=== PATIENT | male | born 1970 | race Caucasian/White ===

== ENCOUNTER → 2017-06-02 | Outpatient (CLI) | payer OTHER ==
[~2017-06-02] MED LIST: AGM875 PO
[2017-06-02 16:52] LABS: BASO % 0.2 %; BASO ABS # 0.01 K/uL (0-0.2); COMPLETE YES; EOS % 1.1 %; HEMATOCRIT 43.4 % (42-52); IG% 0.5 %; LYMPH % 40.7 %; LYMPH ABS # 2.55 K/uL (1.2-3.4); MEAN CELL VOLUME 90.8 fL (80-100); MEAN CORPUSCULAR HEMOGLOBIN 31.6 pg (25-34); MEAN CORPUSCULAR HGB CONC 34.8 g/dl (32-36); MEAN PLATELET VOLUME 9.8 fL (7.4-10.4); MONO % 3.7 %; NEUT % 53.8 %; PLATELET COUNT 259 K/uL (130-400); RED BLOOD COUNT 4.78 M/uL (4.7-6.1); WHITE BLOOD COUNT 6.26 K/uL (4.8-10.8)
[2017-06-02 17:20] LABS: ALT/SGPT 31 U/L (12-78); BLOOD UREA NITROGEN 14 mg/dl (7-18); BUN/CREATININE RATIO 11.8 (10-20); CALCIUM 9.3 mg/dl (8.5-10.1); CARBON DIOXIDE 28 mmol/L (21-32); CHLORIDE 103 mmol/L (98-107); CREATININE 1.21 mg/dl (0.60-1.40); GLUCOSE 104 mg/dl (70-99); POTASSIUM 3.7 mmol/L (3.5-5.1); SODIUM 139 mmol/L (136-145)
[2017-06-02 17:22] LABS: ALB/GLOB RATIO 1.2 (0.9-2); ALKALINE PHOSPHATASE 72 U/L (45-117); AST/SGOT 19 U/L (15-37)
--- NOTE | 2017-06-02 17:25 | DIAGNOSTIC IMAGING REPORT ---
CHEST 2 VIEWS ROUTINE CLINICAL HISTORY: Cough. Lymphadenopathy. COMPARISON STUDY: No previous studies for comparison. FINDINGS: Lung volumes are normal. Lungs are clear. No pneumothorax or pleural effusion is present. Pulmonary vascularity is normal. Cardiac size is normal. Mediastinal contours are normal. There is slight bilateral hilar fullness. IMPRESSION: 1. No acute cardiopulmonary findings. 2. Slight bilateral hilar fullness. This is likely due to normal vessels although is suboptimally assessed by radiography and mild lymphadenopathy could appear similar. Electronically signed by: Americo Dyer M.D. 06/02/2017 5:23 PM Dictated Date/Time: 06/02/2017 5:21 PM
== END | disposition home or self-care (01) ==
LOC: C.RAD 16:17
PROVIDERS: ATTEND Physician Assistant
DX: R59.1 Generalized enlarged lymph nodes (principal)

== ENCOUNTER → 2017-06-06 | Outpatient (CLI) | payer OTHER ==
--- NOTE | 2017-06-06 09:30 | DIAGNOSTIC IMAGING REPORT ---
ULTRASOUND SOFT TISSUES NECK CLINICAL HISTORY: Lymphadenopathy. COMPARISON STUDY: No priors. FINDINGS: Real-time, grayscale, and color flow sonography of the soft tissues the neck is performed to assess lymphadenopathy. There is bilateral cervical lymphadenopathy. The largest node is present on the left and measures 4.9 x 1.5 x 4.5 cm. The largest node on the right measures 2.3 x 1.5 x 2.3 cm. IMPRESSION: There is nonspecific bilateral cervical lymphadenopathy, potentially on a reactive basis. If this fails to resolve over a reasonable time course then fine-needle aspiration should be considered. Electronically signed by: Noah Louise M.D. 06/06/2017 9:29 AM Dictated Date/Time: 06/06/2017 9:27 AM
--- NOTE | 2017-06-06 11:24 | DIAGNOSTIC IMAGING REPORT ---
GUIDANCE NEEDLE PLACEMENT CLINICAL HISTORY: Cervical lymphadenopathy COMPARISON STUDY: Neck ultrasound of same day. PROCEDURE: The risks, benefits, and alternatives to the procedure were discussed with the patient. Written informed consent was obtained. The patient was placed supine in ultrasound, and one of the enlarged right posterior chain lymph nodes was localized by ultrasound and selected for fine needle aspiration. The right posterior neck was prepped and draped in the usual sterile fashion. The nodule was aspirated under ultrasound guidance with 3 passes utilizing 25-gauge needles. Specimens were reviewed by the pathologist in real-time and deemed adequate for diagnosis. The patient tolerated the procedure well and left the department in satisfactory condition. IMPRESSION: Completed fine-needle aspiration of a right posterior chain cervical lymph node as above. The above report was generated using voice recognition software. It may contain grammatical, syntax or spelling errors. Electronically signed by: Nicho Sheth M.D. 06/06/2017 11:22 AM Dictated Date/Time: 06/06/2017 11:21 AM
[2017-06-09 11:12] LABS: NEO FLOW LYMPH/LEUK STND SEE NEO MISC
== END | disposition home or self-care (01) ==
LOC: C.ULTR 08:38
PROVIDERS: ATTEND Physician Assistant
DX: R59.1 Generalized enlarged lymph nodes (principal)

== ENCOUNTER → 2017-07-07 | Day surgery (SDC) | payer OTHER ==
[2017-07-03 07:41] VITALS: BMI 25.0
[~2017-07-07] VITALS: Ht 175.3 cm; Wt 79.5 kg
[~2017-07-07] MED LIST changes: -AGM875 PO; +ATROPINE SULFATE 0.1 MG/ML 5ML SYR IV PRN; +CEFAZOLIN SOD 2000MG/10 ML IV PUSH IV ONE; +FENTANYL CITRATE INJ 50 MCG/1 ML 2 ML VIAL IV PRN; +FENTANYL CITRATE INJ 50 MCG/1 ML 2 ML VIAL ONE; +HEPARIN SOD (PORCINE) 1000 UNIT/ML 10 ML VIAL ONE; +KETOROLAC TROMETHAMINE 30 MG/ML VIAL IV. PRN; +LABETALOL HCL IV 5 MG/ML 20ML IV PRN; +LACTATED RINGER'S 1000ML 1,000 ML IV SCH; +MIDAZOLAM HCL 1 MG/ML 2ML VIAL ONE; +ONDANSETRON INJ 2 MG/ML 2 ML VIAL IV PRN; +OXYC-57 PO; +OXYCODONE/ACETAMINOPHEN 5-325 TAB PO PRN; +SODIUM CHLORIDE 0.9% 1000ML 1,000 ML IV SCH
[2017-07-07 07:49] VITALS: BP 115/78; PULSE 70; TEMP 36.9; O2SAT 98; Ht 175.3 cm; Wt 79.5 kg
--- NOTE | 2017-07-07 08:25 | History & Physical Bridge Note ---
H&P Re-Evaluation Bridge Note: I have examined the patient, reviewed the History & Physical and in the interval since the performance of the History & Physical I have noted the following changes of clinical significance: No changes noted
--- NOTE | 2017-07-07 08:38 | History & Physical Bridge Note ---
H&P Re-Evaluation Bridge Note: I have examined the patient, reviewed the History & Physical and in the interval since the performance of the History & Physical I have noted the following changes of clinical significance: Plan for power port placement. Risks reviewed to include but not limited to bleeding, infection, pneumothorax, need for future or more extensive surgery, damage to surrounding structures, injury to major vessel, blood clots, port malfunction, and risks of anesthesia. No other changes noted
--- NOTE | 2017-07-07 09:23 | [facility] Post Operative Brief Note ---
Immediate Operative Summary Operative Date Jul 07, 2017. Pre-Operative Diagnosis Staging for non-Hodgkin's lymphoma Post-Operative Diagnosis Bone marrow done for staging for non-Hodgkin's lymphoma Procedure(s) Performed Bone marrow biopsy and aspirate Surgeon Eduin Monteiro DO Newcomer Hostess Surgeon(s) None Estimated Blood Loss 2-3 cc Findings After obtaining consent the patient did receive a bone marrow biopsy and aspirate from the patient's left posterior iliac crest. 1% lidocaine was used as local anesthetic. Aspirate material was obtained Via [place] needle and a Jamshidi was used for core biopsy. Adequate specimen I believe was obtained. Patient tolerated procedure well. Specimens After obtaining consent the patient did undergo conscious sedation. He was turned on his right side and 1% lidocaine was used to locally anesthetize an area over the left posterior iliac crest. The bone marrow biopsy and aspiration were done successfully. Aspiration was done Via [place] needle and the Jamshidi was used for the core biopsy. Specimen was sent for histology as well as flow cytometric to genetics. The patient tolerated the procedure well. He is now being prepared for port placement. Drains None Anesthesia Conscious sedation Complication(s) None Disposition Recovery Room / PACU
[2017-07-07] MEDS: BUPIVACAINE 0.5 % 5 MG/1 ML MPF 30ML VIAL ONE ×2 (09:43→09:50)
--- NOTE | 2017-07-07 09:56 | [facility] Post Operative Brief Note ---
Immediate Operative Summary Operative Date Jul 07, 2017. Pre-Operative Diagnosis Lymphoma Post-Operative Diagnosis Same as preoperative Procedure(s) Performed Insertion of Mediport with Fluoroscopy, Left Subclavian Surgeon Dr. Horton (Mediport Insert) Guest Specialist Surgeon(s) Tiffani Clement PA-C (Mediport Insert) Estimated Blood Loss 3ml Findings Left subclavian vein PowerPort placed, draws and flushes easily. Specimens None Drains None Anesthesia MAC, local Complication(s) None Disposition Recovery Room / PACU
--- NOTE | 2017-07-07 10:02 | [facility] Operative Report ---
Operative Report Operative Date Jul 07, 2017. Pre-Operative Diagnosis Lymphoma Post-Operative Diagnosis lymphoma Procedure(s) Performed Left subclavian PowerPort placement Surgeon Dr. Horton (Mediport Insert) Electric Wheelchair Repairer Surgeon(s) Tiffani Clement PA-C (Mediport Insert) Estimated Blood Loss 3ml Findings Left subclavian vein PowerPort placed, draws and flushes easily. Specimens None Drains None Anesthesia MAC, local Complication(s) None Disposition Recovery Room / PACU Indications 47-year-old male with lymphoma, plan for power port placement. The risks of the procedure were discussed, all questions were answered, and the patient agreed to proceed with surgery as planned. Description of Procedure The patient was properly identified, consented, and taken to the operating room where she was placed in the supine position with both arms tucked and a shoulder roll placed vertically. Monitored anesthesia care was induced. SCDs and a safety belt were placed. Preoperative antibiotics were administered. Bone marrow biopsy was performed by medical oncology, please see their dictation for further information regarding this procedure. The patient's chest and neck was prepped and draped in the standard sterile fashion. Surgical timeout was performed and all parties were in agreement that this was the correct patient and procedure to be performed and we continued as planned. The patient was placed in Trendelenburg position. Local anesthetic was injected along the skin incision. The left subclavian vein was accessed on the second attempt using the access needle. The wire was placed, the needle was removed. Fluoroscopy confirmed placement into the subclavian vein extending into the superior vena cava. Transverse skin incision was made and a pocket was created for the port. The dilator and peel-away sheath were inserted over the wire. The catheter was then inserted through the peel-away sheath and fluoroscopy confirmed placement into the superior vena cava. The catheter was cut to length and attached to the port. The port was secured into place with 3- 0 Prolene sutures. Final fluoroscopy revealed good placement of the port. The wound was irrigated and hemostasis was confirmed. The skin was closed with interrupted 3-0 Vicryl deep dermal sutures, followed by 4-0 Monocryl running subcuticular suture. Dermabond was placed over the wound. The port was accessed and yola blood easily and flushed easily. It was flushed with heparinized saline. The patient taken to the PACU where she recovered without apparent incident. All sponge, instrument and needle counts were correct at the conclusion of the procedure. The patient tolerated the procedure well. I attest to the content of the Intraoperative Record and any orders documented therein. Any exceptions are noted below.
--- NOTE | 2017-07-07 10:04 | Discharge Instructions ---
Discharge Instructions Date of Service Jul 07, 2017. Admission Reason for Admission: Non Hodgkins Lymphoma Discharge Discharge Diagnosis / Problem: Non-Hodgkins Lymphoma Discharge Goals Goal(s): Improve function, Learn about illness Activity Recommendations Activity Limitations: as noted below Lifting Limitations: no more than 10 pounds Exercise/Sports Limitations: until after follow-up appointment May Resume Sexual Activity: after follow-up appointment Shower/Bathe: tomorrow Driving or Machine Use: resume 1 day after discharge . Instructions / Follow-Up Instructions / Follow-Up You have dissolvable sutures that do not need to be removed with Dermabond overtop the incision. You can shower tomorrow AM. The Dermabond will stay on the incision for a couple of weeks and then will start to peel off. Please follow-up with Dr. Horton in the office in 1-2 weeks. Please call the office to make a follow-up appointment at [phone]. Please call the office with any questions or concerns. Current Hospital Diet Patient's current hospital diet: Discharge Diet Recommended Diet: Regular Diet Procedures Procedures Performed: Insertion of Mediport with Fluoroscopy, Left Subclavian Pending Studies Studies pending at discharge: no Medical Emergencies . Who to Call and When: Medical Emergencies: If at any time you feel your situation is an emergency, please call 911 immediately. . Non-Emergent Contact Non-Emergency issues call your: Primary Care Provider, Surgeon Call Non-Emergent contact if: temperature is above 101.5, your pain is not controlled, wound has increased drainage, wound has increased redness . "Provider Documentation" section prepared by Tiffani Clement. . VTE Core Measure Inpt VTE Proph given/why not?: SCD's [place] Drug Monitoring Program Search Results: patient reviewed within database, no issues identified
--- NOTE | 2017-07-07 10:40 | Anesthesiology Progress Note ---
Anesthesia Post Op Note Date & Time Jul 07, 2017 at 10:40 Vital Signs Pain Intensity: 0 Vital Signs Past 12 Hours Date Time Temp Pulse Resp B/P (MAP) Pulse Ox O2 Delivery O2 Flow Rate FiO2 07/07/17 10:30 63 18 102/79 98 Room Air 07/07/17 10:15 36.7 64 23 102/77 98 Room Air 07/07/17 10:05 63 19 105/73 96 Room Air 07/07/17 09:58 36.3 69 16 113/75 97 Room Air 07/07/17 07:49 36.9 70 18 115/78 (90) 98 Room Air Notes Mental Status: alert / awake / arousable, participated in evaluation Pt Amnestic to Procedure: Yes Nausea / Vomiting: adequately controlled Pain: adequately controlled Airway Patency, RR, SpO2: stable & adequate BP & HR: stable & adequate Hydration State: stable & adequate Anesthetic Complications: no major complications apparent
--- NOTE | 2017-07-07 10:55 | DIAGNOSTIC IMAGING REPORT ---
CHEST ONE VIEW PORTABLE HISTORY: s/p port placement COMPARISON: Chest 06/02/2017. FINDINGS: No pleural effusions. No pneumothorax. Interval placement of left subclavian Port-A-Cath which terminates in the distal SVC. The lungs are clear. The heart is top normal in size. Mediastinal density at the peritracheal and subcarinal locations is consistent with the patient's lymphadenopathy. IMPRESSION: Left subclavian Port-A-Cath which terminates in the distal SVC. No pneumothorax. Mediastinal lymphadenopathy persists. Electronically signed by: Javier Rodriguez M.D. 07/07/2017 10:54 AM Dictated Date/Time: 07/07/2017 10:52 AM
[2017-07-07 11:05] VITALS: BP 110/71; PULSE 71; TEMP 36.7; O2SAT 96
[2017-07-07 11:35] VITALS: BP 104/67; PULSE 65; TEMP 36.7; O2SAT 99
== END | disposition home or self-care (01) ==
LOC: C.ACU 07:11
PROVIDERS: ATTEND Internal Medicine Hematology & Oncology
DX: C81.74 Other Hodgkin lymphoma, lymph nodes of axilla and upper limb (principal); Z80.3 Family history of malignant neoplasm of breast

== ENCOUNTER → 2018-01-07 | Outpatient (CLI) | payer OTHER ==
--- NOTE | 2018-01-07 12:04 | DIAGNOSTIC IMAGING REPORT ---
PET/CT SKULL-THIGH CLINICAL HISTORY: 47 years-old Male with LYMPHOMA. Subsequent treatment strategy. Patient's reported last chemotherapy treatment was 12/09/2017. COMPARISON: PET/CT 06/18/2017. TECHNIQUE: The patient was injected with 12.9 mCi of F-18 fluorodeoxyglucose (FDG) and an emission scan was performed from the skull vertex to the toes. Noncontrast CT was performed for attenuation correction and anatomic localization. The blood glucose level was 100 mg/dl. FINDINGS: HEAD AND NECK: Symmetric uptake within the region of the palatine tonsils, cricoid cartilage and sublingual glands is likely physiologic. There is markedly improved appearance of the neck adenopathy with decreased size and FDG uptake about the lymph nodes. For example, index lymph node about the right parotid gland now measures 9 x 6 mm, previously 1.9 x 1.6 cm. Lymph node posterior to the right SCM, image 36 series 2 now measures 7 x 5 mm, previously 3.1 x 2.0 cm. No new pathologic adenopathy or focal hypermetabolic activity identified. CHEST: Markedly improved appearance of the mediastinal and hilar adenopathy with decreased size and FDG uptake of the lymph nodes. For example, index subcarinal lymph node now measures 1.1 x 0.8 cm, previously 3.9 x 2.4 cm. No new adenopathy or hypermetabolic activity about the chest. ABDOMEN AND PELVIS: Markedly improved appearance of the abdominal and pelvic adenopathy with decreased size and FDG uptake of the lymph nodes. For example, index periaortic adenopathy at the level of the kidneys now measures 2.8 x 1.7 cm, image 151 series 2, previously measuring 10.7 x 6.4 cm. Lymph nodes anterior to the SVC have also decreased in size. Index pelvic sidewall lymph node on the right now measures 1.6 x 0.7 cm on image 209 series 2 and previously measured 5.5 x 3.5 cm. Index right inguinal lymph node now measures 1.0 x 0.7 cm, previously 3.0 x 2.3 cm. No new adenopathy or hypermetabolic activity. Spleen is normal in size. MUSCULOSKELETAL SYSTEM AND EXTREMITIES: There is a physiologic distribution of activity within the bone marrow, with no hypermetabolic foci. ADDITIONAL CT FINDINGS: Left subclavian Rcacaq-y-Nbhk catheter terminates within the distal SVC. The heart is mildly enlarged. Coronary arterial calcifications are noted. Decreased size of the richadr-fissural lymph nodes adjacent to the left upper lobe, now measuring 4 mm, previously measuring up to 6 mm. No suspicious pulmonary nodules. Mild dependent subsegmental bibasilar atelectasis. Nonobstructing punctate calculus of the interpolar left kidney. Small fat-filled left inguinal hernia. Mild wall thickening with partial distention of the bladder. Phleboliths of the pelvis. Moderate stool volume suggests constipation. Normal appendix. No ascites or mesenteric inflammatory changes. Soft tissues are unremarkable. Bones appear intact. No suspicious lytic or blastic bony lesions. Polypoid mucosal thickening of the bilateral maxillary sinuses. Hypoplasia of the right frontal sinus. Severe intervertebral disc space narrowing at L5-S1. IMPRESSION: 1. Markedly improved exam with decreased size and metabolic activity of the lymph nodes about the neck, chest, abdomen and pelvis as detailed above compatible with positive response to therapy. 2. Normal size of the spleen. 3. Additional findings as above. The above report was generated using voice recognition software. It may contain grammatical, syntax or spelling errors. Dictated: 01/07/2018 11:02 AM Transcribed: 01/07/2018 12:03 PM [email or web address] Electronically signed by: Nicho Sheth M.D. 01/07/2018 1:17 PM Dictated Date/Time: 01/07/2018 11:02 AM
== END | disposition home or self-care (01) ==
LOC: C.PET 07:48
PROVIDERS: ATTEND Internal Medicine Hematology & Oncology
DX: C91.10 Chronic lymphocytic leukemia of B-cell type not having achieved remission (principal)

== ENCOUNTER 2024-10-13 00:03 | Inpatient (IN) ==
[2024-10-13 01:00] LABS: Albumin Globulin Ratio 1.7 (0.9-2); Albumin Level 4.3 gm/dl (3.4-5.0); BUN Creatinine Ratio 16.2 (10-20); Bilirubin,Total 0.4 mg/dl (0.2-1.0); Calcium 8.9 mg/dl (8.6-10.3); Creatinine Clr Calc Pharmacy 97.7 ml/min; Globulin 2.6 gm/dl (2.5-4.0); Potassium 3.6 mmol/L (3.5-5.1); Total Protein 6.9 gm/dl (6.0-8.3)
[2024-10-13 01:10] LABS: INR 0.9 (0.9-1.1); Partial Thromboplastin Time 26 Seconds (21-31); Prothrombin Time 10.2 Seconds (9.0-12.0)
[2024-10-13 01:26] LABS: Troponin I High Sensitivity 108.3 pg/ml (0-20)
--- NOTE | 2024-10-13 01:30 | XRay Report ---
EXAM: XR chest 1V not portable CLINICAL HISTORY: Chest pain, nonspecific TECHNIQUE: An X-ray image of the chest is obtained in AP projection. COMPARISON: Prior CT dated 07/20/2024 was reviewed. This examination has been compared with prior x-ray dated 10/30/2023 FINDINGS: Pulmonary Parenchyma: Patient is rotated Atelectatic band seen in right lung perihilar region and lower zone No evidence of consolidation, collapse, or focal opacities. No pulmonary nodules are identified. No evidence of pleural effusion or pleural thickening. Smooth diaphragmatic, noted on right side Heart and Mediastinum: Heart size and shape are normal. No mediastinal widening or masses. No hilar or mediastinal lymphadenopathy. Both say appear prominent Bony Thorax: Bony thorax appears intact without fractures or deformities. Soft Tissues: Soft tissues overlying the chest wall are unremarkable. IMPRESSION: 1. Atelectatic band seen in right lung perihilar region and lower zone, stable. 2. No evidence of active pulmonary infection. 3. No pleural effusion identified bilaterally. 4. Redemonstration of bilateral hilar vascular congestion, with possibility of right-sided lymph nodes. No enlarged right hilar lymph node seen on CT prior examination. 5. No other significant interval changes in relation to the prior CT and X-ray examination Electronically signed by Amadou Stevens 10-13-2024 01:30 AM
[2024-10-13] MEDS: ASPIRIN 81 MG CHEW PO STA (01:39)
[2024-10-13] MEDS: NITROGLYCERIN 2% OINTMENT 30GM TUBE EXT ONE (01:39)
[2024-10-13] MEDS: MoRPHine SULFATE 4 MG/ML 1 ML CARP\\VIAL IV PRN (01:42)
[2024-10-13] MEDS: OPTIRAY 320 125ml IV ONE (01:57)
[2024-10-13] MEDS: NITROGLYCERIN SL 0.4 MG/TAB TAB ONE (01:58)
[2024-10-13 02:01] LABS: Basophils # (auto) 0.02 K/uL (0.00-0.20); Basophils % (auto) 0.4 %; Eosinophils # (auto) 0.21 K/uL (0.00-0.50); Eosinophils % (auto) 3.8 %; Hematocrit (blood only) 44.2 % (42.0-52.0); Hemoglobin 15.2 g/dl (14.0-18.0); Immature Granulocytes # (auto) 0.02 K/uL (0.01-0.20); Immature Granulocytes % (auto) 0.4 %; Lymphocytes # (auto) 1.53 K/uL (1.20-3.40); Lymphocytes % (auto) 27.6 %; Mean Corpuscular Hemoglobin 31.2 pg (25.0-34.0); Mean Corpuscular Hgb Conc 34.4 g/dL (32.0-36.0); Mean Corpuscular Volume 90.8 fL (80.0-100.0); Mean Platelet Volume 9.9 fL (9.4-12.4); Monocytes # (auto) 0.46 K/uL (0.11-0.59); Monocytes % (auto) 8.3 %; Neutrophils % (auto) 59.5 %; Platelet Count 241 K/uL (130-400); RDW Standard Deviation 39.6 fL (36.4-46.3); Red Blood Count 4.87 M/uL (4.70-6.10); White Blood Count 5.54 K/ul (4.8-10.8)
--- NOTE | 2024-10-13 03:44 | CT Scan Report ---
EXAM: CT angio chest dissec wo/w con CLINICAL HISTORY: chest pain TECHNIQUE: Contiguous 3.[address] angiographic images of the chest were acquired with the administration of intravenous contrast. Coronal and sagittal reconstructions were obtained.119 ml opti 320 was administered for post-contrast images. One of these 3D techniques was utilized: Maximum Intensity Pixel (MIP), 3D Reconstructed Images, Volume Rendered Images, Surface Shaded Rendering. One of the following dose reduction techniques were utilized for this exam: Automated exposure control, adjustment of the mA and/or kV according to patient size, and use of iterative reconstruction. COMPARISON: None. FINDINGS: Aorta: The thoracic aorta is normal in caliber. No evidence of aneurysm, dissection, or significant atherosclerotic changes. Aortic arch and descending thoracic aorta are unremarkable. Pulmonary Arteries: Pulmonary arteries are normal in size and opacification. No evidence of pulmonary embolism. No stenosis or filling defects. Superior Vena Cava (SVC) and Inferior Vena Cava (IVC): Normal opacification and caliber. No evidence of thrombus or obstruction. Mediastinum: No mediastinal mass or lymphadenopathy. Normal appearance of the thymus. Heart: Normal size and morphology of the heart. No pericardial effusion. Lungs: Lungs are clear with no evidence of consolidation, nodules, or masses. Atelectatic band noted at the right middle lobe. No pleural effusion or thickening. Bones: No fractures or lytic/sclerotic lesions of the visualized bony structures. Normal alignment and bone density. Soft Tissues: Normal appearance of the visualized soft tissues. No abnormal masses or fluid collections. Pathologically enlarged left axillary lymph nodes were noted. The scan part of the abdomen fatty liver. IMPRESSION: 1. Normal CT angiography of the chest, no evidence of dissection. 2. No evidence of significant vascular abnormalities. 3. Left axillary lymphadenopathy. Need clinical correlation and further work up. 4. Fatty liver. Electronically signed by Amadou Stevens 10-13-2024 03:44 AM
--- NOTE | 2024-10-13 04:54 | History & Physical Report ---
Date of Service October 13, 2024 Assessment & Plan (1) NSTEMI (non-ST elevated myocardial infarction): (2) Dyslipidemia: Plan The patient is a 54-year-old male with a past medical history including Diaz's neuroma of right foot, dyslipidemia, non-Hodgkin's lymphoma in remission for 7 years.The patient presents to the emergency department with report of substernal chest pain that began around 7:00 this evening after eating supper. He reports that the pain was a new finding for him, and became significantly more intense when he tried to lay back as he was getting ready to go to bed at around 9-10 o'clock this evening. Due to the persistence and worsening of symptoms, patient presented to the emergency department for assessment. In the emergency department, CT angiography chest PE protocol was negative for PE. Initial troponin was 108.3, with follow-up 189.8. Initial EKG showed nonspecific changes across the anterior chest leads. Follow-up EKG showed some more prominent changes. In combination with increasing troponin, and the patient's symptomatology along with changing EKG, patient was placed on heparin drip, he had already been given aspirin 324 mg from the ED, and was on Nitropaste 1 inch anterior chest wall which will be continued. Patient also will have be started on atorvastatin 40 mg now, will follow serial troponins, order complete echocardiogram, check hemoglobin A1c, and cardiology consult has been made. #NSTEMI- The patient will be admitted to telemetry for serial cardiac enzymes, serial EKG's, cardiac rhythm monitoring and a 2-D echocardiogram with Dopplers. Initial troponin 108.3, with follow-up 189.8 Initial EKG with normal sinus rhythm with nonspecific changes along the anterior chest leads, with more progressive changes on second EKG. Begin heparin bolus/drip via protocol Continue Nitropaste 1 inch to anterior chest wall every 6 hours Has already been given aspirin 325 mg daily, and will continue aspirin 81 mg every morning Start Lipitor 40 mg every morning, with first dose now Check a fasting lipid panel and hemoglobin A1c Give Klor-Con 40 mill equivalents p.o. now for potassium of 3.6 Follow serial CBC with differential, chemistry profile, magnesium, PT/PTT/INR and serial troponins Placed on NSS plus KCl 20 mill equivalents at 100 mL/h x [address] Sutherland is aware Non-Hodgkin's lymphoma- Follows with Dr. Lindo, and has been for the most part in remission for 7 years, mother reports there has been some left axillary activity recently History of Present Illness Chief Complaint: The patient presents to the emergency department with report of substernal chest pain that began around 7:00 this evening after eating supper. He reports that the pain was a new finding for him, and became significantly more intense when he tried to lay back as he was getting ready to go to bed at around 9-10 o'clock this evening. Due to the persistence and worsening of symptoms, patient presented to the emergency department for assessment. Primary Care Provider: Rosa Toure MD The patient is a 54-year-old male with a past medical history including Diaz's neuroma of right foot, dyslipidemia, non-Hodgkin's lymphoma in remission for 7 years.The patient presents to the emergency department with report of substernal chest pain that began around 7:00 this evening after eating supper. He reports that the pain was a new finding for him, and became significantly more intense when he tried to lay back as he was getting ready to go to bed at around 9-10 o'clock this evening. Due to the persistence and worsening of symptoms, patient presented to the emergency department for assessment. In the emergency department, CT angiography chest PE protocol was negative for PE. Initial troponin was 108.3, with follow-up 189.8. Initial EKG showed nonspecific changes across the anterior chest leads. Follow-up EKG showed some more prominent changes. In combination with increasing troponin, and the patient's symptomatology along with changing EKG, patient was placed on heparin drip, he had already been given aspirin 324 mg from the ED, and was on Nitropaste 1 inch anterior chest wall which will be continued. Patient also will have be started on atorvastatin 40 mg now, will follow serial troponins, order complete echocardiogram, check hemoglobin A1c, and cardiology consult has been made. Allergies Allergy/AdvReac Type Severity Reaction Status Date / Time No Known Allergies Allergy Mild Verified 05/20/20 10:46 Home Medications Medication Instructions Recorded Confirmed Type sulfamethoxazole 800 1 tab PO BID #10 tabs 07/12/20 07/12/20 Rx mg-trimethoprim 160 mg tablet (Bactrim DS) fluocinonide 0.05 % topical cream 1 applic topical BID #60 grams 07/17/20 Rx amoxicillin 875 mg-potassium 1 tab PO BID #14 tabs 03/20/21 03/20/21 Rx clavulanate 125 mg tablet (Augmentin) benzonatate 100 mg capsule 100 mg PO TID PRN cough #30 caps 03/20/21 03/20/21 Rx (Tessalon Perles) methylprednisolone 4 mg tablets in See Rx Instructions .Route 04/06/21 Rx a dose pack (Medrol (Tobi)) .COMPLEX #21 ea Past Med/Surg History Problem List (Updated 10/13/24 @ 05:28 by Jamar Will MD) NSTEMI (non-ST elevated myocardial infarction) Diaz's neuroma of right foot Metatarsalgia of right foot Dyslipidemia (Acute) Medical History Dyslipidemia Herpes zoster Metatarsalgia of right foot Nephrolithiasis Non-Hodgkin lymphoma Surgical History H/O lymph node biopsy S/P tooth extraction Family History Mother FHx: breast cancer Family history of diabetes mellitus Social History Smoking Status: Never smoker Second Hand Exposure: No; Do You Dip or Chew Tobacco: No; Hx Alcohol Use: Yes Hx Substance Use: No Preferred Language: Ethiopian Communication Ability: Effective Carpet Layer Required: No Beliefs That Will Affect Care: None marital status: Legally Current Living Situation: Alone Feels Safe at Home: Yes Assistive Devices: Contacts Review of Systems 2 Review of Systems: The patient presently denies chest pain, palpitations, shortness of breath, dyspnea on exertion, cough, lower extremity swelling, sore throat, fevers, chills, sweats, weight change, fatigue, nausea, vomiting, diarrhea , constipation, abdominal pain, pelvic pain, blood in urine or stool, dysuria, urinary frequency or urgency, lightheadedness, dizziness, headache, memory loss, loss of consciousness, rash, abnormal bruising or bleeding, imbalance, focal or generalized weakness, numbness or tingling in arms or legs, generalized arthralgias or myalgias, back or neck pain, or night sweats. The review of systems is otherwise negative other than for that already noted above, and at least 10 systems have been reviewed. Physical Exam Physical Exam: The patient is awake, alert and oriented 3, well developed and well nourished, normocephalic and atraumatic, lying in bed and in no acute distress. HEENT--PERRL, EOMI, mucous membranes and oropharynx normal. Neck--supple. No JVD. No bruits. Thyroid normal, trachea midline, no adenopathy . Heart--normal S1 and S2. No murmurs, rubs or gallops. Lungs--clear bilaterally, no respiratory distress, no accessory muscle use. Abdomen--normal bowel sounds and soft. Nontender. Nondistended, no hernias or masses, no organomegaly. Extremities--no cyanosis or clubbing. No edema. There are good distal pulses b/l. Dermatologic--normal skin turgor, normal color, no abnormal lymph nodes, no rash. Neurologic--cranial nerves II through XII grossly intact. Rheumatologic--normal range of motion. Psychiatric--normal affect. Results & Data Results & Data Vital Signs (Past 12 Hours) Vital Signs Temp Pulse Pulse Resp BP BP Pulse Ox 10/13/24 04:46 71 10/13/24 04:15 66 20 113/85 93 10/13/24 03:45 65 21 112/84 91 10/13/24 03:30 64 20 126/88 92 10/13/24 03:15 67 16 117/88 94 10/13/24 02:00 75 17 165/117 H 96 10/13/24 00:49 67 10/13/24 00:44 68 23 168/104 H 97 10/13/24 00:44 97 10/13/24 00:06 36.9 C 69 19 173/98 H 97 O2 Del Method 10/13/24 04:46 10/13/24 04:15 10/13/24 03:45 10/13/24 03:30 10/13/24 03:15 10/13/24 02:00 Room Air 10/13/24 00:49 10/13/24 00:44 Room Air 10/13/24 00:44 Room Air 10/13/24 00:06 Room Air Laboratory Results Laboratory Results WBC 5.54 K/ul (4.8-10.8) 10/13/24 00:22 RBC 4.87 M/uL (4.70-6.10) 10/13/24 00:22 Hgb 15.2 g/dl (14.0-18.0) 10/13/24 00:22 Hct 44.2 % (42.0-52.0) 10/13/24 00:22 MCV 90.8 fL (80.0-100.0) 10/13/24 00:22 MCH 31.2 pg (25.0-34.0) 10/13/24 00: MCHC 34.4 g/dL (32.0-36.0) 10/13/24 00: RDW Std Deviation 39.6 fL (36.4-46.3) 10/13/24 00: RDW Coeff of Олег 12.0 % (11.5-14.5) 10/13/24 00: Plt Count 241 K/uL (130-400) 10/13/24 00:22 MPV 9.9 fL (9.4-12.4) 10/13/24 00:22 Immature Gran % (Auto) 0.4 % 10/13/24 00:22 Neut % (Auto) 59.5 % 10/13/24 00:22 Lymph % (Auto) 27.6 % 10/13/24 00:22 Bulloch % (Auto) 8.3 % 10/13/24 00:22 Eos % (Auto) 3.8 % 10/13/24 00:22 Baso % (Auto) 0.4 % 10/13/24 00:22 Neut # (Auto) 3.30 K/uL (1.40-6.50) 10/13/24 00:22 Lymph # (Auto) 1.53 K/uL (1.20-3.40) 10/13/24 00:22 Bulloch # (Auto) 0.46 K/uL (0.11-0.59) 10/13/24 00:22 Eos # (Auto) 0.21 K/uL (0.00-0.50) 10/13/24 00:22 Baso # (Auto) 0.02 K/uL (0.00-0.20) 10/13/24 00:22 Immature Gran # (Auto) 0.02 K/uL (0.01-0.20) 10/13/24 00:22 PT 10.2 Seconds (9.0-12.0) 10/13/24 00:22 INR 0.9 (0.9-1.1) 10/13/24 00:22 APTT 26 Seconds (21-31) 10/13/24 00:22 PTT Ratio 1.0 10/13/24 00:22 Sodium 139 mmol/L (136-145) 10/13/24 00:22 Potassium 3.6 mmol/L (3.5-5.1) 10/13/24 00:22 Chloride 107 mmol/L (98-107) 10/13/24 00:22 Carbon Dioxide 26 mmol/L (21-32) 10/13/24 00:22 Anion Gap 6 (3-11) 10/13/24 00:22 BUN 16 mg/dl (6-23) 10/13/24 00:22 Creatinine 0.99 mg/dl (0.6-1.4) 10/13/24 00:22 Est Cr Clr Drug Dosing 97.7 ml/min 10/13/24 00:22 eGFR 91.66 10/13/24 00:22 BUN/Creatinine Ratio 16.2 (10-20) 10/13/24 00:22 Glucose 135 mg/dl (70-99(Fasting)) H 10/13/24 00:22 Calcium 8.9 mg/dl (8.6-10.3) 10/13/24 00:22 Total Bilirubin 0.4 mg/dl (0.2-1.0) 10/13/24 00:22 AST 26 U/L (13-39) 10/13/24 00:22 ALT 59 U/L (7-52) H 10/13/24 00:22 Alkaline Phosphatase 83 U/L (34-104) 10/13/24 00:22 Troponin I High Sens 189.8 pg/ml (0-20) H* D 10/13/24 02:04 Total Protein 6.9 gm/dl (6.0-8.3) 10/13/24 00:22 Albumin 4.3 gm/dl (3.4-5.0) 10/13/24 00:22 Globulin 2.6 gm/dl (2.5-4.0) 10/13/24 00:22 Albumin/Globulin Ratio 1.7 (0.9-2) 10/13/24 00:22 Impressions Chest X-Ray 10/13/24 00:09 EXAM: XR chest 1V not portable CLINICAL HISTORY: Chest pain, nonspecific TECHNIQUE: An X-ray image of the chest is obtained in AP projection. COMPARISON: Prior CT dated 07/20/2024 was reviewed. This examination has been compared with prior x-ray dated 10/30/2023 FINDINGS: Pulmonary Parenchyma: Patient is rotated Atelectatic band seen in right lung perihilar region and lower zone No evidence of consolidation, collapse, or focal opacities. No pulmonary nodules are identified. No evidence of pleural effusion or pleural thickening. Smooth diaphragmatic, noted on right side Heart and Mediastinum: Heart size and shape are normal. No mediastinal widening or masses. No hilar or mediastinal lymphadenopathy. Both say appear prominent Bony Thorax: Bony thorax appears intact without fractures or deformities. Soft Tissues: Soft tissues overlying the chest wall are unremarkable. IMPRESSION: 1. Atelectatic band seen in right lung perihilar region and lower zone, stable. 2. No evidence of active pulmonary infection. 3. No pleural effusion identified bilaterally. 4. Redemonstration of bilateral hilar vascular congestion, with possibility of right-sided lymph nodes. No enlarged right hilar lymph node seen on CT prior examination. 5. No other significant interval changes in relation to the prior CT and X-ray examination Electronically signed by Amadou Stevens 10-13-2024 01:30 AM Chest CTA 10/13/24 01:43 EXAM: CT angio chest dissec wo/w con CLINICAL HISTORY: chest pain TECHNIQUE: Contiguous 3.[address] angiographic images of the chest were acquired with the administration of intravenous contrast. Coronal and sagittal reconstructions were obtained.119 ml opti 320 was administered for post-contrast images. One of these 3D techniques was utilized: Maximum Intensity Pixel (MIP), 3D Reconstructed Images, Volume Rendered Images, Surface Shaded Rendering. One of the following dose reduction techniques were utilized for this exam: Automated exposure control, adjustment of the mA and/or kV according to patient size, and use of iterative reconstruction. COMPARISON: None. FINDINGS: Aorta: The thoracic aorta is normal in caliber. No evidence of aneurysm, dissection, or significant atherosclerotic changes. Aortic arch and descending thoracic aorta are unremarkable. Pulmonary Arteries: Pulmonary arteries are normal in size and opacification. No evidence of pulmonary embolism. No stenosis or filling defects. Superior Vena Cava (SVC) and Inferior Vena Cava (IVC): Normal opacification and caliber. No evidence of thrombus or obstruction. Mediastinum: No mediastinal mass or lymphadenopathy. Normal appearance of the thymus. Heart: Normal size and morphology of the heart. No pericardial effusion. Lungs: Lungs are clear with no evidence of consolidation, nodules, or masses. Atelectatic band noted at the right middle lobe. No pleural effusion or thickening. Bones: No fractures or lytic/sclerotic lesions of the visualized bony structures. Normal alignment and bone density. Soft Tissues: Normal appearance of the visualized soft tissues. No abnormal masses or fluid collections. Pathologically enlarged left axillary lymph nodes were noted. The scan part of the abdomen fatty liver. IMPRESSION: 1. Normal CT angiography of the chest, no evidence of dissection. 2. No evidence of significant vascular abnormalities. 3. Left axillary lymphadenopathy. Need clinical correlation and further work up. 4. Fatty liver. Electronically signed by Amadou Stevens 10-13-2024 03:44 AM Code Status & VTE Plan Code Status Full code VTE Prophylaxis Plan VTE Prophylaxis will be ordered: Yes PG Care Time/CCT Total # of Minutes Spent Total Time Spent with Patient: Total time spent is greater than 50% in coordination of care (as documented) at patient's floor/unit and/or counseling patient: Coding Level of Care Code 56858 INT INP/OBS CARE 3/75MIN Diagnoses NSTEMI (non-ST elevated myocardial infarction) I21.4 Dyslipidemia E78.5
[2024-10-13] MEDS: POTASSIUM CHLORIDE CRTAB 20 MEQ TABCR PO STA (05:01)
[2024-10-13] MEDS: HEPARIN 25000 UNIT/500 ML D5W 25,000 UNITS/500 ML BAG IV SCH (05:02)
[2024-10-13] MEDS: NSS + 20MEQ KCL 20 MEQ/1,000 ML BAG IV SCH (05:03)
[2024-10-13] MEDS: HEPARIN SOD (PORCINE) 1000 UNIT/ML IV ONE (05:04)
[2024-10-13] MEDS: ATORVASTATIN 40 MG TAB PO ONE (05:24)
[2024-10-13 06:06] LABS: Troponin I High Sensitivity 387.9 pg/ml (0-20)
--- NOTE | 2024-10-13 06:35 | Emergency Department Note ---
History of Present Illness General Chief complaint: Chest Pain Stated complaint: CHEST PAIN,VERY HIGH BLOOD PRESSURE,TINGLING IN [place] Time Seen by Provider: 10/13/24 01:29 History of Present Illness Maximum Pain Intensity: 2 This is a 54-year-old male presenting to the emergency department from home for evaluation of acute onset chest pain. Patient's discomfort is primarily substernal without radiation. He describes this as a heaviness, and there may be a positional component to the discomfort. He was eating dinner at the time symptoms began and did take [id number] Tums without any improvement of symptoms. Patient does not have any known cardiac disease, but does have a history of non-Hodgkin's lymphoma but has been in remission for several years. He does follow locally with Dr. Faye for this. The patient does not identify a strong family history of cardiopulmonary disease. No recent travel history. He rates his discomfort an 8/10. Home Medications Medication Instructions Recorded Confirmed Type sulfamethoxazole 800 1 tab PO BID #10 tabs 07/12/20 07/12/20 Rx mg-trimethoprim 160 mg tablet (Bactrim DS) fluocinonide 0.05 % topical cream 1 applic topical BID #60 grams 07/17/20 Rx amoxicillin 875 mg-potassium 1 tab PO BID #14 tabs 03/20/21 03/20/21 Rx clavulanate 125 mg tablet (Augmentin) benzonatate 100 mg capsule 100 mg PO TID PRN cough #30 caps 03/20/21 03/20/21 Rx (Tessalon Perles) methylprednisolone 4 mg tablets in See Rx Instructions .Route 04/06/21 Rx a dose pack (Medrol (Tobi)) .COMPLEX #21 ea Allergies Allergy/AdvReac Type Severity Reaction Status Date / Time No Known Allergies Allergy Mild Verified 05/20/20 10:46 Past Med/Surg History Problem List (Updated 10/13/24 @ 06:35 by Homero Hawkins PA-C) Elevated troponin (Acute) Chest pain (Acute) NSTEMI (non-ST elevated myocardial infarction) (Acute) Diaz's neuroma of right foot Metatarsalgia of right foot Dyslipidemia (Acute) Medical History Nephrolithiasis Herpes zoster Non-Hodgkin lymphoma Surgical History S/P tooth extraction H/O lymph node biopsy RIGHT AXILLARY Family History Mother FHx: breast cancer Family history of diabetes mellitus Social History Smoking Status: Never smoker Second Hand Exposure: No; Do You Dip or Chew Tobacco: No; Hx Alcohol Use: Yes Hx Substance Use: No Preferred Language: Sami Communication Ability: Effective Machine Repairer Required: No Beliefs That Will Affect Care: None marital status: Legally Current Living Situation: Alone Feels Safe at Home: Yes Assistive Devices: Contacts Review of Systems A total of 10 systems reviewed and were otherwise negative Physical Exam Vital Signs Vital Signs - 24 hr 10/13/24 00:06 10/13/24 00:44 10/13/24 00:44 Temperature 36.9 C Temperature Source Temporal Artery Scan Pulse Rate 69 Pulse Rate [Apical] 68 Pulse Rhythm Regular Pulse Strength Normal Respiratory Rate 19 23 Respiratory Effort / Characteristics Non-Labored Spontaneous Non-Labored Spontaneous Respiratory Depth Normal Normal Respiratory Pattern Regular Blood Pressure 173/98 H Blood Pressure [Right Arm] 168/104 H Blood Pressure Mean 123 Blood Pressure Mean [Right Arm] 125 Blood Pressure Position Sitting Pulse Oximetry 97 97 97 Oxygen Delivery Method Room Air Room Air Room Air Sepsis Recent Fever Within 48 Hours No Sepsis New/Unexplained Change in Mental Status N/A Sepsis Action Taken by Nursing No Action Required 10/13/24 00:49 10/13/24 02:00 10/13/24 03:15 Temperature Temperature Source Pulse Rate 67 67 Pulse Rate [Apical] 75 Pulse Rhythm Pulse Strength Respiratory Rate 17 16 Respiratory Effort / Characteristics Non-Labored Spontaneous Respiratory Depth Normal Respiratory Pattern Regular Blood Pressure 117/88 Blood Pressure [Right Arm] 165/117 H Blood Pressure Mean 97 Blood Pressure Mean [Right Arm] 133 Blood Pressure Position Pulse Oximetry 96 94 Oxygen Delivery Method Room Air Sepsis Recent Fever Within 48 Hours Sepsis New/Unexplained Change in Mental Status Sepsis Action Taken by Nursing 10/13/24 03:30 10/13/24 03:45 10/13/24 04:15 Temperature Temperature Source Pulse Rate 64 65 66 Pulse Rate [Apical] Pulse Rhythm Pulse Strength Respiratory Rate 20 21 20 Respiratory Effort / Characteristics Respiratory Depth Respiratory Pattern Blood Pressure 126/88 112/84 113/85 Blood Pressure [Right Arm] Blood Pressure Mean 100 93 94 Blood Pressure Mean [Right Arm] Blood Pressure Position Pulse Oximetry 92 91 93 Oxygen Delivery Method Sepsis Recent Fever Within 48 Hours Sepsis New/Unexplained Change in Mental Status Sepsis Action Taken by Nursing 10/13/24 04:46 10/13/24 04:51 Temperature Temperature Source Pulse Rate 71 67 Pulse Rate [Apical] Pulse Rhythm Pulse Strength Respiratory Rate 19 Respiratory Effort / Characteristics Respiratory Depth Respiratory Pattern Blood Pressure 124/89 Blood Pressure [Right Arm] Blood Pressure Mean 100 Blood Pressure Mean [Right Arm] Blood Pressure Position Pulse Oximetry 95 Oxygen Delivery Method Sepsis Recent Fever Within 48 Hours Sepsis New/Unexplained Change in Mental Status Sepsis Action Taken by Nursing VITALS: Vitals are noted on the nurse's note and reviewed by myself. Vital signs stable. GENERAL: Well-developed, well-nourished, male who is pleasant and cooperative. He does appear very uncomfortable and diaphoretic on exam. HEAD: Normocephalic atraumatic. NECK: Supple without nuchal rigidity. No lymphadenopathy. No thyromegaly. Cervical spine is nontender. HEART: Regular rate and rhythm without murmurs gallops or rubs. LUNGS: Clear to auscultation bilaterally without wheezes, rales or rhonchi. No retractions or accessory muscle use. ABDOMEN: Positive normal bowel sounds x 4. Soft, nontender, without masses or organomegaly. No guarding or rebound tenderness. MUSCULOSKELETAL: No muscle atrophy, erythema, or edema noted. Full range of motion in all extremities. Course Administered Medications Heparin Sodium/Dextrose (Heparin 67044 Unit/500 Ml D5w) 25,000 units in 500 mls @ 28 mls/hr IV .[id number] [facility]; Protocol Stop: 11/12/24 04:59 Last Admin: 10/13/24 05:02 Dose: 1,400 units/hr, 28 mls/hr Documented By: JOAQUIN Co-signed By: PINA Potassium Chloride/Sodium Chloride (Normal Saline W/20 Meq Kcl) 20 meq in 1,000 mls @ 100 mls/hr IV .Q10H [facility] Stop: 10/13/24 14:59 Last Admin: 10/13/24 05:03 Dose: 100 mls/hr Documented By: JOAQUIN Discontinued Medications Aspirin (Aspirin 81 Mg Chew) 324 mg PO NOW STA Stop: 10/13/24 01:30 Last Admin: 10/13/24 01:39 Dose: 324 mg Documented By: SELENA Atorvastatin Calcium (Atorvastatin 40 Mg Tab) 40 mg PO NOW ONE Stop: 10/13/24 04:46 Last Admin: 10/13/24 05:24 Dose: 40 mg Documented By: JOAQUIN Heparin Sodium (Porcine) (Heparin Sod (Porcine) 1000 Unit/Ml) 1 units IV NOW ONE Stop: 10/13/24 04:57 Last Admin: 10/13/24 05:04 Dose: 6,000 units Documented By: JOAQUIN Co-signed By: PINA Ioversol (Optiray 320 125ml) 119 ml IV ONCE ONE Stop: 10/13/24 01:57 Last Admin: 10/13/24 01:57 Dose: 119 ml Documented By: YOUSIF Morphine Sulfate (Morphine Sulfate 4 Mg/Ml 1 Ml Carp\Vial) 4 mg IV Q30M PRN PRN Reason: Pain Stop: 10/27/24 01:36 Last Admin: 10/13/24 01:42 Dose: 4 mg Documented By: SELENA Nitroglycerin (Nitroglycerin 2% Ointment 30gm Tube) 1 inch EXT NOW ONE Stop: 10/13/24 01:30 Last Admin: 10/13/24 01:39 Dose: 1 inch Documented By: SELENA Nitroglycerin (Nitroglycerin Sl 0.4 Mg/Tab Tab) Confirm Administered Dose 0.4 mg .ROUTE .STK-MED ONE Stop: 10/13/24 01:37 Last Admin: 10/13/24 01:58 Dose: Not Given Documented By: SELENA Potassium Chloride (Potassium Chloride Crtab 20 Meq Tabcr) 40 meq PO NOW STA Stop: 10/13/24 04:46 Last Admin: 10/13/24 05:01 Dose: 40 meq Documented By: JOAQUIN Critical Care Time I have personally spent greater than 55 minutes of critical care time in the direct management of this patient. This includes bedside care, interpretation of diagnostic studies, and testing, discussion with consultants, patient, and family members, and other required patient management activities. This 55 minutes is in excess of all separately billable procedures. Medical Decision Making Differential Diagnosis Differential diagnosis includes, but is not limited to: Myocardial infarction, dysrhythmia, pericarditis, pneumothorax, aortic aneurysm/dissection, DVT/PE, anxiety, GERD, PUD, electrolyte imbalance, thyroid disorder, pneumonia, bronchitis, pancreatitis, and others Laboratory Data 10/13/24 00:22 10/13/24 00:22 Lab Results 10/13/24 10/13/24 Range/Units 00:22 02:04 WBC 5.54 (4.8-10.8) K/ul RBC 4.87 (4.70-6.10) M/uL Hgb 15.2 (14.0-18.0) g/dl Hct 44.2 (42.0-52.0) % MCV 90.8 (80.0-100.0) fL MCH 31.2 (25.0-34.0) pg MCHC 34.4 (32.0-36.0) g/dL RDW Std Deviation 39.6 (36.4-46.3) fL RDW Coeff of Олег 12.0 (11.5-14.5) % Plt Count 241 (130-400) K/uL MPV 9.9 (9.4-12.4) fL Immature Gran % (Auto) 0.4 % Neut % (Auto) 59.5 % Lymph % (Auto) 27.6 % [place] % (Auto) 8.3 % Eos % (Auto) 3.8 % Baso % (Auto) 0.4 % Neut # (Auto) 3.30 (1.40-6.50) K/uL Lymph # (Auto) 1.53 (1.20-3.40) K/uL [place] # (Auto) 0.46 (0.11-0.59) K/uL Eos # (Auto) 0.21 (0.00-0.50) K/uL Baso # (Auto) 0.02 (0.00-0.20) K/uL Immature Gran # (Auto) 0.02 (0.01-0.20) K/uL PT 10.2 (9.0-12.0) Seconds INR 0.9 (0.9-1.1) APTT 26 (21-31) Seconds PTT Ratio 1.0 Sodium 139 (136-145) mmol/L Potassium 3.6 (3.5-5.1) mmol/L Chloride 107 (98-107) mmol/L Carbon Dioxide 26 (21-32) mmol/L Anion Gap 6 (3-11) BUN 16 (6-23) mg/dl Creatinine 0.99 (0.6-1.4) mg/dl Est Cr Clr Drug Dosing 97.7 ml/min eGFR 91.66 BUN/Creatinine Ratio 16.2 (10-20) Glucose 135 H (70-99(Fasting)) mg/dl Calcium 8.9 (8.6-10.3) mg/dl Total Bilirubin 0.4 (0.2-1.0) mg/dl AST 26 (13-39) U/L ALT 59 H (7-52) U/L Alkaline Phosphatase 83 (34-104) U/L Troponin I High Sens 108.3 H* 189.8 H* D (0-20) pg/ml Total Protein 6.9 (6.0-8.3) gm/dl Albumin 4.3 (3.4-5.0) gm/dl Globulin 2.6 (2.5-4.0) gm/dl Albumin/Globulin Ratio 1.7 (0.9-2) Imaging Data Radiologist's Impression: Chest X-Ray 10/13/24 00:09 EXAM: XR chest 1V not portable CLINICAL HISTORY: Chest pain, nonspecific TECHNIQUE: An X-ray image of the chest is obtained in AP projection. COMPARISON: Prior CT dated 07/20/2024 was reviewed. This examination has been compared with prior x-ray dated 10/30/2023 FINDINGS: Pulmonary Parenchyma: Patient is rotated Atelectatic band seen in right lung perihilar region and lower zone No evidence of consolidation, collapse, or focal opacities. No pulmonary nodules are identified. No evidence of pleural effusion or pleural thickening. Smooth diaphragmatic, noted on right side Heart and Mediastinum: Heart size and shape are normal. No mediastinal widening or masses. No hilar or mediastinal lymphadenopathy. Both say appear prominent Bony Thorax: Bony thorax appears intact without fractures or deformities. Soft Tissues: Soft tissues overlying the chest wall are unremarkable. IMPRESSION: 1. Atelectatic band seen in right lung perihilar region and lower zone, stable. 2. No evidence of active pulmonary infection. 3. No pleural effusion identified bilaterally. 4. Redemonstration of bilateral hilar vascular congestion, with possibility of right-sided lymph nodes. No enlarged right hilar lymph node seen on CT prior examination. 5. No other significant interval changes in relation to the prior CT and X-ray examination Electronically signed by Amadou Stevens 10-13-2024 01:30 AM Chest CTA 10/13/24 01:43 EXAM: CT angio chest dissec wo/w con CLINICAL HISTORY: chest pain TECHNIQUE: Contiguous 3.[address] angiographic images of the chest were acquired with the administration of intravenous contrast. Coronal and sagittal reconstructions were obtained.119 ml opti 320 was administered for post-contrast images. One of these 3D techniques was utilized: Maximum Intensity Pixel (MIP), 3D Reconstructed Images, Volume Rendered Images, Surface Shaded Rendering. One of the following dose reduction techniques were utilized for this exam: Automated exposure control, adjustment of the mA and/or kV according to patient size, and use of iterative reconstruction. COMPARISON: None. FINDINGS: Aorta: The thoracic aorta is normal in caliber. No evidence of aneurysm, dissection, or significant atherosclerotic changes. Aortic arch and descending thoracic aorta are unremarkable. Pulmonary Arteries: Pulmonary arteries are normal in size and opacification. No evidence of pulmonary embolism. No stenosis or filling defects. Superior Vena Cava (SVC) and Inferior Vena Cava (IVC): Normal opacification and caliber. No evidence of thrombus or obstruction. Mediastinum: No mediastinal mass or lymphadenopathy. Normal appearance of the thymus. Heart: Normal size and morphology of the heart. No pericardial effusion. Lungs: Lungs are clear with no evidence of consolidation, nodules, or masses. Atelectatic band noted at the right middle lobe. No pleural effusion or thickening. Bones: No fractures or lytic/sclerotic lesions of the visualized bony structures. Normal alignment and bone density. Soft Tissues: Normal appearance of the visualized soft tissues. No abnormal masses or fluid collections. Pathologically enlarged left axillary lymph nodes were noted. The scan part of the abdomen fatty liver. IMPRESSION: 1. Normal CT angiography of the chest, no evidence of dissection. 2. No evidence of significant vascular abnormalities. 3. Left axillary lymphadenopathy. Need clinical correlation and further work up. 4. Fatty liver. Electronically signed by Amadou Stevens 10-13-2024 03:44 AM ECG Data Additional Comments: Initial EKG at 00: 15 Normal sinus rhythm at 72 bpm, No acute ST elevation. No previous for comparison EKG performed at 04:48 Normal sinus rhythm at 62 bpm. T wave abnormality consistent with anterolateral ischemia Nonspecific ST-T segment change in lateral leads with T wave inversion in the lateral leads when compared to previous MDM Narrative Physical exam and history were performed. Nursing notes, EMR, and Medication List were personally reviewed. No social concerns were identified as barriers to patients care. Patient appears to have chest pain bringing him to the emergency department. Patient is quite uncomfortable on presentation. Patient was seen during a period of very high ER volume and acuity with extended wait times. Nursing protocol order have been performed and some of these are available for my review at the time of patient encounter. Patient was immediately evaluated upon placement in his ER room. An order was placed for continuous cardiac monitoring. The monitor shows a rate of 74 with normal sinus rhythm. Patient's blood work is as above and was reviewed. He does not have a significant elevated white blood cell count, gross anemia, bandemia, or significant electrolyte imbalance. Transaminases are not diagnostic. Patient's initial troponin with protocol labs is elevated at over 100. He was given aspirin and Nitropaste here in the ER. He was also given morphine as he was rating his pain at a fairly high level. Case was discussed with my attending, Dr. Morgan, who also evaluated the patient and remained involved in care decision making. Patient was sent to CT scan to rule out aneurysm or dissection. CT scan was reviewed by myself and radiology showing no acute process. Several EKGs were performed throughout the patient's stay, and he is exhibiting ischemic changes. Case was discussed with the on-call corn miller, Dr. Sutherland, and we were able to get the patient pain-free, and while heart alert was considered it seems reasonable to defer catheterization at this moment. Recommendation is to start heparin, which was performed. Patient does not appear well for discharge home and escalation of care is necessary. I did discuss the case with the on-call hospitalist, Dr. Will, who agreed to evaluate patient here in the ER. Please see the hospitalist team dictation for further patient course, plan, and disposition. The chart was completed utilizing [employer] Speech Voice Recognition Software. Grammatical errors, random word insertions, pronoun errors, and incomplete sentences are an occasional consequence of this system due to software limitations, ambient noise, and hardware issues. Any formal questions or concerns about the content, text, or information contained within the body of this dictation should be directly addressed to the provider for clarification. Impression & Plan NSTEMI (non-ST elevated myocardial infarction), Chest pain, Elevated troponin Discharge Plan Visit Data Chief Complaint: Chest Pain Stated Complaint: CHEST PAIN,VERY HIGH BLOOD PRESSURE,[place] IN [place] ED Provider: Darshana Morgan ED Midlevel Provider: Homero Hawkins Discharge Problem: NSTEMI (non-ST elevated myocardial infarction), Chest pain, Elevated troponin Patient Disposition: Admitted As Inpatient Discharge Instructions Interventions: ED Discharge Assessment Last Done: 10/13/24 06:16
[2024-10-13] MEDS: Heparin IV Adult Wt-Based Standard w/ INITIAL Bolus Protocol IV STA (07:01)
[2024-10-13] MEDS: METOPROLOL TARTRATE 25 MG TAB PO STA (07:02)
[2024-10-13] MEDS: ACETAMINOPHEN 325 MG TAB PO PRN (07:02)
--- NOTE | 2024-10-13 07:19 | Pre Anesthesia Assessment ---
Date of Service October 13, 2024 Pre Sedation Assessment Vital Signs Temp Pulse Pulse Resp BP BP Pulse Ox 10/13/24 07:00 37.0 C 72 16 135/91 98 10/13/24 06:54 66 10/13/24 06:25 10/13/24 06:25 36.9 C 75 16 128/89 96 10/13/24 04:51 67 19 124/89 95 10/13/24 04:46 71 10/13/24 04:15 66 20 113/85 93 10/13/24 03:45 65 21 112/84 91 10/13/24 03:30 64 20 126/88 92 10/13/24 03:15 67 16 117/88 94 10/13/24 02:00 75 17 165/117 H 96 10/13/24 00:49 67 10/13/24 00:44 68 23 168/104 H 97 10/13/24 00:44 97 10/13/24 00:06 36.9 C 69 19 173/98 H 97 Pulse Ox O2 Del Method O2 Del Method 10/13/24 07:00 Room Air 10/13/24 06:54 10/13/24 06:25 96 Room Air 10/13/24 06:25 Room Air 10/13/24 04:51 10/13/24 04:46 10/13/24 04:15 10/13/24 03:45 10/13/24 03:30 10/13/24 03:15 10/13/24 02:00 Room Air 10/13/24 00:49 10/13/24 00:44 Room Air 10/13/24 00:44 Room Air 10/13/24 00:06 Room Air Cardiovascular RRR, no murmur, no edema Respiratory normal respiratory effort, lungs clear to auscultation Pre-Sedation Airway Assessment Smoking Status: Never smoker ASA: ASA3 NPO Status Date of Last Intake of Fluids: 10/13/24 Time of Last Intake of Fluids: 07:00 Last Oral Intake of Fluids Comment: sips with meds Date of Last Intake of Solid Food: 10/12/24 Time of Last Intake of Solid Foods: 18:00 Procedure Planning Contraindications for Sedation: none Current Medications Reviewed: Yes Notes The planned sedation has been discussed with the patient. Informed Consent was obtained. I have identified the patient, determined the appropriateness of sedation and have assessed the patient immediately prior to the procedure. All medicine(s) and interventions are by my order.
--- NOTE | 2024-10-13 07:30 | Cardiology Consultation ---
Date of Consultation October 13, 2024 Assessment & Plan (1) NSTEMI (non-ST elevated myocardial infarction): (2) Dyslipidemia: Plan ASSESSMENT/PLAN: 1. NSTEMI: Currently pain-free. Objective data suggests LAD ischemia. Continue Nitropaste for now. Continue heparin drip. Received full dose aspirin. Recommend cardiac catheterization. Risk and benefits were discussed with he and his in detail. They were made aware that CT surgery is not available at this facility. They were agreeable to proceed. 2. Dyslipidemia: High intensity statin therapy given NSTEMI. 3. Disposition: Cardiac catheterization this morning. Cardiac rehabilitation on discharge. Close follow-up in the outpatient office. Plan of care communicated with primary hospitalist, Dr. Pond. Highly complex medical issues. Thank you for allowing me to participate in the care of your patient. Please call for any other questions or concerns. Sincerely, Arpit Sutherland M.D. History of Present Illness Reason for Consultation: STEMI Requesting Physician: Jamar Will MD Attending Physician: Artem Pond MD History of Present Illness Mr. Almonte is a very pleasant 54-year-old gentleman with a history significant for non-Hodgkin's lymphoma (went into remission December 2017) and dyslipidemia. On 10/12/2024, he developed chest discomfort which was substernal at approximately 2100, while sitting watching TV. He described as a tightness and a pressure. There was some radiation to his upper back however he feels upper back discomfort at times with anxiety. He took a Tums and was unclear if it gave much relief. The pain persisted at approximately 20-30 when he laid in bed, the pain intensified. His blood pressure was elevated with systolic 180 and diastolic 120 mmHg. He felt better when sitting up at the bedside. There was no associated shortness of breath. Blood pressure gradually improved. He believes the chest pain completely resolved but then worsened again when he laid down. He then became diaphoretic and felt as though his heart was pounding although his heart rate was in the 60s. Eventually, he decided to go to the ER and walk to the car and still had chest discomfort and pounding. When he walked into the ER, his chest pain worsened again but then completely resolved only to return again even more intensely. He received nitroglycerin paste, full dose aspirin, and was noted to have high- sensitivity troponin elevation of 108 on presentation which trended upward to 387 this morning at approximately 5:04 AM. I was notified by ER provider, Homero Alexandria at approximately 4:53 AM. His chest pain was resolved and ECG demonstrated evolving T wave abnormality in the LAD territory. He also had received morphine. Heparin was pending at that time and is currently running. [facility] was personally contacted and asked to perform an echo this morning which demonstrated on preliminary review LAD wall motion abnormality and likely mildly reduced LV systolic function. At the bedside, when seen this morning, he denied any further chest discomfort. His blood pressure had improved. He denies syncope, near syncope, edema, melena, hematochezia, hematuria. He had noted decreased exercise tolerance in general recently but no chest discomfort until 10/12/2024. He admits that he has been more sedentary with his job. Review of systems: As above. Family history: No known premature CAD. Mother had type 2 diabetes. Social history: Denies smoking. Rare alcohol. No drugs. Lives at home with his , Alexandria, and his orlandoon. His [id number] is Micki ChinPETER. Has 3 biologic children. Has 1 stepson. He owns a [employer] company. His , Alexandria, was present at the bedside. Allergies Allergy/AdvReac Type Severity Reaction Status Date / Time No Known Allergies Allergy Mild Verified 05/20/20 10:46 Home Medications Medication Instructions Recorded Confirmed Type sulfamethoxazole 800 1 tab PO BID #10 tabs 07/12/20 07/12/20 Rx mg-trimethoprim 160 mg tablet (Bactrim DS) fluocinonide 0.05 % topical cream 1 applic topical BID #60 grams 07/17/20 Rx amoxicillin 875 mg-potassium 1 tab PO BID #14 tabs 03/20/21 03/20/21 Rx clavulanate 125 mg tablet (Augmentin) benzonatate 100 mg capsule 100 mg PO TID PRN cough #30 caps 03/20/21 03/20/21 Rx (Tessalon Perles) methylprednisolone 4 mg tablets in See Rx Instructions .Route 04/06/21 Rx a dose pack (Medrol (Tobi)) .COMPLEX #21 ea Problem List Elevated troponin (Acute) Chest pain (Acute) NSTEMI (non-ST elevated myocardial infarction) (Acute) Diaz's neuroma of right foot Metatarsalgia of right foot Dyslipidemia (Acute) Patient History Medical History Nephrolithiasis Herpes zoster Non-Hodgkin lymphoma Surgical History S/P tooth extraction H/O lymph node biopsy RIGHT AXILLARY Family History Mother FHx: breast cancer Family history of diabetes mellitus Social History Smoking Status: Never smoker Second Hand Exposure: No; Do You Dip or Chew Tobacco: No; Hx Alcohol Use: No Hx Substance Use: No Preferred Language: Monegasque Communication Ability: Effective [employer] Required: No Beliefs That Will Affect Care: None marital status: Legally Current Living Situation: Spouse Other Information That Helps Us Care for You: No Feels Safe at Home: Yes Safety Concerns: Feels Safe At This Time Assistive Devices: Contacts Physical Exam Physical Exam: Gen.: No acute distress. Alert and oriented. HEENT: Anicteric sclera. Neck: No JVD. No bruits. Normal carotid upstrokes bilaterally. Cardiac: Regular. Normal S1-S2. No murmurs, rubs, or gallops. Pulmonary: Clear to auscultation bilaterally without wheezes, rales, or rhonchi. Abdomen: Soft, nontender, nondistended, with normoactive bowel sounds. No bruits noted. Extremities: 2+ radial pulses bilaterally. 2+ posterior tibialis pulses bilaterally. No edema or cyanosis. Psychiatric: Affect appears appropriate. Results & Data Vital Signs (Past 12 Hours) Vital Signs Temp Pulse Pulse Resp BP BP Pulse Ox 10/13/24 07:00 37.0 C 72 16 135/91 98 10/13/24 06:54 66 10/13/24 06:25 10/13/24 06:25 36.9 C 75 16 128/89 96 10/13/24 04:51 67 19 124/89 95 10/13/24 04:46 71 10/13/24 04:15 66 20 113/85 93 10/13/24 03:45 65 21 112/84 91 10/13/24 03:30 64 20 126/88 92 10/13/24 03:15 67 16 117/88 94 10/13/24 02:00 75 17 165/117 H 96 10/13/24 00:49 67 10/13/24 00:44 68 23 168/104 H 97 10/13/24 00:44 97 10/13/24 00:06 36.9 C 69 19 173/98 H 97 Pulse Ox O2 Del Method O2 Del Method 10/13/24 07:00 Room Air 10/13/24 06:54 10/13/24 06:25 96 Room Air 10/13/24 06:25 Room Air 10/13/24 04:51 10/13/24 04:46 10/13/24 04:15 10/13/24 03:45 10/13/24 03:30 10/13/24 03:15 10/13/24 02:00 Room Air 10/13/24 00:49 10/13/24 00:44 Room Air 10/13/24 00:44 Room Air 10/13/24 00:06 Room Air Laboratory Results Laboratory Results - last 24 hr 10/13/24 10/13/24 10/13/24 00:22 02:04 05:04 WBC 5.54 RBC 4.87 Hgb 15.2 Hct 44.2 MCV 90.8 MCH 31.2 MCHC 34.4 RDW Std Deviation 39.6 RDW Coeff of Олег 12.0 Plt Count 241 MPV 9.9 Immature Gran % (Auto) 0.4 Neut % (Auto) 59.5 Lymph % (Auto) 27.6 [place] % (Auto) 8.3 Eos % (Auto) 3.8 Baso % (Auto) 0.4 Neut # (Auto) 3.30 Lymph # (Auto) 1.53 [place] # (Auto) 0.46 Eos # (Auto) 0.21 Baso # (Auto) 0.02 Immature Gran # (Auto) 0.02 PT 10.2 INR 0.9 APTT 26 PTT Ratio 1.0 Sodium 139 Potassium 3.6 Chloride 107 Carbon Dioxide 26 Anion Gap 6 BUN 16 Creatinine 0.99 Est Cr Clr Drug Dosing 97.7 eGFR 91.66 BUN/Creatinine Ratio 16.2 Glucose 135 H Estimat Average Glucose Pending Hemoglobin A1c Pending Calcium 8.9 Magnesium Total Bilirubin 0.4 AST 26 ALT 59 H Alkaline Phosphatase 83 Troponin I High Sens 108.3 H* 189.8 H* D 387.9 H* D Total Protein 6.9 Albumin 4.3 Globulin 2.6 Albumin/Globulin Ratio 1.7 Triglycerides 174 H Cholesterol 214 H LDL Cholesterol, Calc 136 VLDL Cholesterol, Calc 35 H HDL Cholesterol 43 Cholesterol/HDL Ratio 5.0 10/13/24 07:10 WBC RBC Hgb Hct MCV MCH MCHC RDW Std Deviation RDW Coeff of Олег Plt Count MPV Immature Gran % (Auto) Neut % (Auto) Lymph % (Auto) [place] % (Auto) Eos % (Auto) Baso % (Auto) Neut # (Auto) Lymph # (Auto) [place] # (Auto) Eos # (Auto) Baso # (Auto) Immature Gran # (Auto) PT INR APTT PTT Ratio Sodium Potassium Chloride Carbon Dioxide Anion Gap BUN Creatinine Est Cr Clr Drug Dosing eGFR BUN/Creatinine Ratio Glucose Estimat Average Glucose Hemoglobin A1c Calcium Magnesium Pending Total Bilirubin AST ALT Alkaline Phosphatase Troponin I High Sens Pending Total Protein Albumin Globulin Albumin/Globulin Ratio Triglycerides Cholesterol LDL Cholesterol, Calc VLDL Cholesterol, Calc HDL Cholesterol Cholesterol/HDL Ratio Diagnostic Findings Echo reviewed from 10/13/2024: Preliminary review: Mildly reduced LV systolic function. LAD wall motion abnormality. Formal review to follow. ECGs personally reviewed: ECG 10/13/2024 at 0015: Sinus rhythm 72 bpm. Anterior T wave inversion. ECG 10/13/2024 at 4:48 AM: Sinus rhythm 62 bpm. Progression of anterior T wave inversion. Labs reviewed and notable for elevated high-sensitivity troponin up to 536, normal renal function, normal potassium, pending A1c, normal magnesium, mildly elevated ALT, elevated LDL, mildly elevated triglycerides, normal blood counts. History and physical report reviewed. CTA of the chest report reviewed from 10/13/2024: No aortic dissection. No pulmonary embolism. Left axillary lymphadenopathy (known to patient). Fatty liver. Medications Administered Current Inpatient Medications Acetaminophen (Acetaminophen 325 Mg Tab) 650 mg PO Q4H PRN PRN Reason: Pain or Fever Stop: 11/12/24 06:15 Last Admin: 10/13/24 07:02 Dose: 650 mg Heparin Sodium/Dextrose (Heparin 88316 Unit/500 Ml D5w) 25,000 units in 500 mls @ 28 mls/hr IV .[id number] [facility] [place]; Protocol Stop: 11/12/24 04:59 Last Admin: 10/13/24 05:02 Dose: 1,400 units/hr, 28 mls/hr Potassium Chloride/Sodium Chloride (Normal Saline W/20 Meq Kcl) 20 meq in 1,000 mls @ 100 mls/hr IV .Q10H [facility] Stop: 10/13/24 14:59 Last Admin: 10/13/24 05:03 Dose: 100 mls/hr Metoprolol Tartrate (Metoprolol Tartrate 25 Mg Tab) 12.5 mg PO BID [facility] Stop: 11/12/24 20:59 PG Care Time/CCT Total # of Minutes Spent Total Time Spent with Patient: Total time spent is greater than 50% in coordination of care (as documented) at patient's floor/unit and/or counseling patient: Coding Level of Care Code 02556 OFFICE CONSULT LVL M Diagnoses NSTEMI (non-ST elevated myocardial infarction) I21.4 Dyslipidemia E78.5
--- NOTE | 2024-10-13 07:43 | Pre Anesthesia Assessment ---
Date of Service October 13, 2024 Pre Sedation Assessment Vital Signs Temp Pulse Pulse Resp BP BP Pulse Ox 10/13/24 07:00 37.0 C 72 16 135/91 98 10/13/24 06:54 66 10/13/24 06:25 10/13/24 06:25 36.9 C 75 16 128/89 96 10/13/24 04:51 67 19 124/89 95 10/13/24 04:46 71 10/13/24 04:15 66 20 113/85 93 10/13/24 03:45 65 21 112/84 91 10/13/24 03:30 64 20 126/88 92 10/13/24 03:15 67 16 117/88 94 10/13/24 02:00 75 17 165/117 H 96 10/13/24 00:49 67 10/13/24 00:44 68 23 168/104 H 97 10/13/24 00:44 97 10/13/24 00:06 36.9 C 69 19 173/98 H 97 Pulse Ox O2 Del Method O2 Del Method 10/13/24 07:00 Room Air 10/13/24 06:54 10/13/24 06:25 96 Room Air 10/13/24 06:25 Room Air 10/13/24 04:51 10/13/24 04:46 10/13/24 04:15 10/13/24 03:45 10/13/24 03:30 10/13/24 03:15 10/13/24 02:00 Room Air 10/13/24 00:49 10/13/24 00:44 Room Air 10/13/24 00:44 Room Air 10/13/24 00:06 Room Air Pre-Sedation Airway Assessment Smoking Status: Never smoker Hx Sleep Apnea: No Short, Thick Neck: No Thyromental Distance: > or= 3.5 Finger Breadths Oral Cavity: + WNL Mallampati Class: II ASA: ASA2 NPO Status Date of Last Intake of Fluids: 10/12/24 Time of Last Intake of Fluids: 19:00 Last Oral Intake of Fluids Comment: sips with meds Date of Last Intake of Solid Food: 10/12/24 Time of Last Intake of Solid Foods: 19:00 Notes The planned sedation has been discussed with the patient. Informed Consent was obtained. I have identified the patient, determined the appropriateness of sedation and have assessed the patient immediately prior to the procedure. All medicine(s) and interventions are by my order.
--- OUTSIDE RECORDS SUMMARY | 2024-10-13 08:29 | External Medical Summary | Continuity of Care Document ---
Author Name Unknown Organization [address] Address [address] [place], [place] [id number] Care Team Providers Care Corporate Compliance Officer Name Role Phone Mesfin Rosa Primary Care Physician [phone] [id number] Date(s): 08/23/24 - 08/23/24 [address] [id number] [phone] Encounter Diagnosis Bronchitis(Discharge Diagnosis) - 08/23/24 History of non-Hodgkin's lymphoma(Discharge Diagnosis) - 08/23/24 Discharge Disposition: Home or Self Care Attending Physician: DO Bolivar Allison B Allergies, Adverse Reactions, Alerts No Known Allergies Assessment and Plan Extracted from: Title:Office Visit Note Author:DO Bolivar Allis on B Date:08/23/24 1.Bronchitis Symptomsand examsuggestive ofsinusitis/bronchitis.Start Doxycycline 100 mg PO BID X 7 days. SE discussed. To add inAugmentin if symptoms worsen or persist. Monitor for fevers.Patient declined x-ray today. Follow-up in the office with any worsening signs or symptoms. 2.History of non-Hodgkin's lymphoma Patient in remission for 7 years.Continue to follow-up with hematology/unk. Immunizations Given and Recorded Vaccine Date Status Refusal Reason zoster vaccine, inactivated 04/29/24 Given zoster vaccine, inactivated 02/04/24 Given tetanus toxoids-diphtheria, Td (Adult) 01/09/22 Gi rajinder SARS-CoV-2 (COVID-19) mRNA-1273 vaccine 1 07/25/21 Recorded SARS-CoV-2 (COVID-19) mRNA-1273 vaccine 2 10/25/20 Recorded SARS-CoV-2 (COVID-19) mRNA-1273 vaccine 3 09/27/20 Recorded 1Result Comment: 2022-10-08: Historical information-source unspecified 2Result Comment: 2022-10-08: Historical information-source unspecified 3Result Comment: 2022-10-08: Historical information-source unspecified Medications doxycycline hyclate 100 mg oral capsule Start: 08/23/24 2:32:00 PM EST, 1 cap, PO, bid, Disp# 14 cap, Pharmacy: [id number] Start Date: 08/23/24 Stop Date: 08/30/24 Status: Ordered Mental Status 08/23/24 Barriers to Learning one year None evide nt Mandatory Health Literacy Documentation Yes Health Literacy Communication Barriers N ever Primary Language Czech Problem List Condition Confirmation Course Effective Dates Status H ealth Status Informant History of non-Hodgkin's lymphoma Confirmed Active Hyperlipidemia Confirmed Active Multiple benign nevi Confirmed Active Seborrheic keratoses Confirmed Active Tinea pedis of both feet Confirmed Active Diagnosis Diagnosis Type Effective Dates Health Status Clinical Service Informant Bronchitis Discharge Diagnosis 08/23/24 Non-Specified History of non-Hodgkin's lymphoma Discharge Diagnosis 08/23/24 Non-Specified Procedures Procedure Date Related Diagnosis Body Site Status Chest X-ray 1 03/19/23 Completed Colonoscopy 2, 3 06/07/22 Complete d X-ray 4 05/28/21 Completed port removal 2019 Completed Lymphadenectomy 2017 Completed port installation 2017 Complet ed 1No active disease in the chest. 2COLO to cecum, 6 mm rectal polyp CS, 3Tubular adenoma - repeat in 5 years per GI 4IMPRESSION: No acute process. Vital Signs Most recent to oldest [Reference Range]: 1 Patient Weight 91 kg (08/23/24 1:59 PM) Heart Rate 75 bpm (08/23/24 1:59 PM) Respiratory Rate 18 br/min (08/23/24 1:59 PM) Blood Pressure 130/82mmHg (08/23/24 1:59 PM) Social History Social History Type Response Smoking Status Never smoked cigaret rhea Sex Male Sex Representation Male (finding) FCM Outpt Note * DO Boliavr Allison B: PERFORM Event Display: FCM Outpt Note Authored Date: [id number] Chief Complaint Sinus infection- sinus pressure, headache, congestion, ears clogged, and coughing. Symptoms began Friday. History of Present Illness Patient is a 54 year old male that presents to the office for complaints of sinus congestion. He reports that he started with sinusinfection Friday. He has headaches,sinus pressure, congestion. He feels like his ears are clogged. He reports this symptom started Byron. He denies any fevers or chills. He states that his chest feels clear, but he has adeep cough. He denies an ynauseaor vomiting. He denies any chest pain or shortness of breath. He has a history of non-Hodgkin's lymphoma and follows with Dr. Lindo. He reports that he has been in remission for 7 years. He recently had a CAT scan in July and states that everything is stable. Review of Systems Constitutional: No fever, No chills, No fatigue._ Respiratory: No shortness of breath, No cough, No wheezing. _ Cardiovascular: no lightheadedness/presyncope, No chest pain, No palpitations._ Gastrointestinal: No nausea, No vomiting, No diarrhea, No constipation, No heartburn, No abdominal pain._ Musculoskeletal: No back pain, No neck pain, No joint pain, No muscle pain, No decreased range ofmotion, No trauma._ Skin: No rash, No pruritus, No breakdown._ Neurologic:No abnormal balance, No numbness, No tingling, No headache._ Physical Exam Vitals & Measurements HR:75(Monitored) RR:18 BP:130/82 SpO2:98% WT:91kg WT:91.000kg(Dosing) PHQ2 Data(Data Documented on:08/23/2024 13:59) Emotional health assessment NEGATIVE General: _Alert and oriented, No acute distress HEENT: _ Normocephalic, TM clear, Nl gross hearing, moist oral mucosa _ Cardiovascular: _Normal rate, Regular rhythm, No murmur, No gallop. Respiratory: _Lungs are clear to auscultation, Respirations are non-labored, Breath sounds are equal Gastrointestinal: _Soft, Non-tender, Non-distended, Normal bowel sounds. Musculoskeletal: _Normal range of motion,normal strength. Neurologic:Normal sensory, Normal motor function, CN II-XII grossly intact. Integumentary: _Warm, Dry, Mandan. Psych: Mood-affect congruence. Reports no SI/HI. Speech is of normal pace and content Assessment/Plan 1.Bronchitis Symptomsand examsuggestive ofsinusitis/bronchitis.Start Doxycycline 100 mg PO BID X 7 days. SE discussed. To add inAugmentin if symptoms worsen or persist. Monitor for fevers.Patient declined x-ray today. Follow-up in the office with any worsening signs or symptoms. 2.History of non-Hodgkin's lymphoma Patient in remission for 7 years.Continue to follow-up with hematology/unk. Problem List/Past Medical History Ongoing History of non-Hodgkin's lymphoma Hyperlipidemia Multiple benign nevi Seborrheic keratoses Tinea pedis of both feet Procedure/Surgical History Chest X-ray| Service Date: 03/19/2023olonoscopy| Service Date: 06/07/2022X-ray| Service Date: 05/28/2021ort removal| Service Date: 2018port installation| Service Date: 2016Lymphadenectomy| Service Date: 2016 Medications doxycycline(doxycycline hyclate 100 mg oral capsule), 100 mg= 1 cap, PO, bid Allergies NKA Social History Smoking Status Never smoked cigarettes Alcohol Use:Current Type:Wine, Liquor Frequency:1-2 times per month Substance Abuse - Denies Substance Abuse Tobacco - Denies Tobacco Use Family History Breast cancer: Mother and MGM. Cancer: PGF. Hypertension: Father. Type II diabetes mellitus: Mother. Health Status Family Member(s) Immunizations Vaccine Date Status zoster vaccine, inactivated 04/29/2024 Given zoster vaccine, inactivated 02/04/2024 Given tetanus toxoids-diphtheria, Td (Adult) 01/09/2022 Given SARS-CoV-2 (COVID-19) mRNA-1273 vaccine 07/25/2021 Recorded Comments : 2022-10-08: Historical information-source unspecified SARS-CoV-2 (COVID-19) mRNA-1273 vaccine 10/25/2020 Recorded Comments : 2022-10-08: Historical information-source unspecified SARS-CoV-2 (COVID-19) mRNA-1273 vaccine 09/27/2020 Recorded Comments : 2022-10-08: Historical information-source unspecified Recommendations Health Maintenance Pending(in the next year) OverDue Adult Influenza Vaccine due02/16/24and every 1year Due Adult COVID-19 Vaccination due08/23/24Unknown Frequency Adult Social Determinants of Health Screening due08/23/24Unknown Frequency Hepatitis C Screening due08/23/24One-time only Satisfied(in the past 1 year) Satisfied Body Mass Index on02/04/24.Satisfied by JIMMY Perez Sharon Shingles Vaccine on02/04/24.Satisfied by JIMMY Perez Sharon Electronic Signature on File Electronically Reviewed/Signed by: Blessing Bolivar DO Author Signature Dt/Tm:08/23/2024 02:39 PM Department of Family Medicine [facility] Patient Care team information Care Team Personnel Name: MD Mesfin, [place] Position: Physician - Family Med Member Role: Primary Care Provider Address: [address] [place] [address], [place] [address] Care Team Related Persons Name: FRIDA CINTRON"
--- NOTE | 2024-10-13 08:44 | Cardiac Catheterization ---
[facility] Data: Event Producer Cardiac Status Clinical evaluation leading to the procedure CAD Presenation: Non STEMI Anginal Classification: CCS IV Heart Failure: No Cardiogenic Shock within 24 Hours: No Cardiac Arrest within 24 Hours: No Imaging Studies Past 6 Months: Yes Stress Studies Past 6 Months: No Coronary Anatomy Dominant: Right Diagnostic Physicians Name: Gomez Sutherland MD Status: Elective Closure Device Percutaneous Entry Location: Radial Closure Device: Radial Band Recommendations: PCI without planned CABG Cardiac Cath Procedure Full Procedure Date October 13, 2024 Pre-Procedure Diagnosis Pre-Procedure Diagnosis: Non STEMI AUC Score AUC Score: 9 Post-Procedure Diagnosis Post-Procedure Diagnosis: Severe CAD and Elevated Intracardiac Pressures Procedure(s) Performed Procedure(s) Performed: Coronary Angiography and Left Heart Cath Service Car Driver Gomez Sutherland MD Cbx Operator(s) Zackary Vergara Estimated Blood Loss Estimated Blood Loss: < 20 ml Medication(s) Medication(s): Fentanyl, Heparin, Lidocaine 1%, Nicardipine and Versed Summary of Findings Procedures: 1. Coronary angiography 2. Left heart catheterization 3. Moderate sedation Indication: Mr. Almonte is a very pleasant 54-year-old gentleman with a history significant for dyslipidemia and non-Hodgkin's lymphoma who presented with NSTEMI with echo and ECG suggesting LAD territory ischemia. Coronary angiography: 1. Left main: Distal left main 20-30%. 2. Left anterior descending: Ostial LAD 40%. Mid LAD 98%. MAURISIO II flow distally. Apical LAD 40%. Small caliber D1. Medium caliber D2. 3. Circumflex: Ostial circumflex 40%. Mid circumflex 10%. Very small caliber OM1. Large OM 2 and large OM 3. 4. Right coronary artery: RCA is large and dominant. Mid RCA 20-30%. Distal RCA 20-30%. PL and PDA without significant CAD. Left heart catheterization: 1. Left ventriculography was not performed. 2. No aortic stenosis. 3. LVEDP 19 mmHg. Moderate sedation: 1. Sedation start time: 7:58 AM 2. Sedation end time: 8:19 AM Procedural notes: 1. Performed via the right radial artery without known complication. 2. Diagnostic catheters were 6 [place] JL 3.5 and 3 DRC. Impression: 1. Severe CAD involving the mid LAD with MAURISIO II flow distally. 2. Otherwise nonobstructive CAD. 3. Mildly elevated left-sided filling pressure. 4. No aortic stenosis. Plan: 1. Dr. Knight of interventional cardiology was asked to consider PCI of mid LAD. He plans to pursue LAD PCI. 2. Risk factor modification. 3. Cardiac rehab. Hemodynamics Rest Ao:: 138/88 Final Ao: 138/87 LV: 134/4/19 Recommendations Recommendations: PCI without planned CABG Specimens Specimens: None Radiation Exposure (mGy) 1213 mGy. Fluoro time 7.9 min. Contrast (mls) 60 ml Procedural Complication(s) None Disposition remained in phlebotomist medical lab assistant for PCI I attest to the content of the Intraoperative Record and any orders documented therein. Any exceptions are noted below. [facility] Card Cath Procedure Codes Cardiac Catheterization Procedure 1: Cardiovascular Cath Procedures: 85439 Coronaries and LHC (+/-LV) Moderate Sedation Procedure 1: Sedation/Anesthesia: 37433 Mod Sedation by the same physician;Init15 Min Child Age 5 & Up Procedure 2: Sedation/Anesthesia: 07552 Mod Sedation by the same physician; Ea [id number] Minutes PG Care Time/CCT Total # of Minutes Spent Total Time Spent with Patient: Total time spent is greater than 50% in coordination of care (as documented) at patient's floor/unit and/or counseling patient:
[2024-10-13] MEDS: fentaNYL citrate PF 100 MCG/2 ML VIAL ONE (08:49)
[2024-10-13] MEDS: HEPARIN (PORCINE) 1000 UNIT/ML 10 ML (CATH LAB USE ONLY) ONE (08:49)
[2024-10-13] MEDS: MIDAZOLAM HCL 1 MG/ML 2ML VIAL ONE (08:49)
[2024-10-13] MEDS: niCARdipine 2,000 MCG/20 ML SYR ONE (08:50)
[2024-10-13] MEDS: NITROGLYCERIN/D5W 100MCG/ML 20ML SYR ONE (08:50)
[2024-10-13] MEDS: OPTIRAY 350 ONE (08:57)
[2024-10-13] MEDS: IODIXANOL (VISIPAQUE) 320 MG/ML 100ML IV ONE (08:58)
[2024-10-13] MEDS: TICAGRELOR 90 MG TAB ONE (09:00)
--- NOTE | 2024-10-13 09:11 | Post Anesthesia Assessment ---
Date of Service October 13, 2024 Post Sedation Assessment Vital Signs Temp Pulse Pulse Resp BP BP Pulse Ox 10/13/24 07:00 98.6 F 72 16 135/91 98 10/13/24 06:54 66 10/13/24 06:25 10/13/24 06:25 98.4 F 75 16 128/89 96 10/13/24 04:51 67 19 124/89 95 10/13/24 04:46 71 10/13/24 04:15 66 20 113/85 93 10/13/24 03:45 65 21 112/84 91 10/13/24 03:30 64 20 126/88 92 10/13/24 03:15 67 16 117/88 94 10/13/24 02:00 75 17 165/117 H 96 10/13/24 00:49 67 10/13/24 00:44 68 23 168/104 H 97 10/13/24 00:44 97 10/13/24 00:06 98.4 F 69 19 173/98 H 97 Pulse Ox O2 Del Method O2 Del Method 10/13/24 07:00 Room Air 10/13/24 06:54 10/13/24 06:25 96 Room Air 10/13/24 06:25 Room Air 10/13/24 04:51 10/13/24 04:46 10/13/24 04:15 10/13/24 03:45 10/13/24 03:30 10/13/24 03:15 10/13/24 02:00 Room Air 10/13/24 00:49 10/13/24 00:44 Room Air 10/13/24 00:44 Room Air 10/13/24 00:06 Room Air Recovery Score Activity: Moves 4 extremities Respiration: Deep Breath/Cough Circulation: +/-20% PreAnes Value Consciousness: Fully Awake Oxygen Saturation: O2 needed for >90% Discharge Sedation Level of Care: Fast Track Phase II Post Sedation Plan On clinical assessment, the patient appears to have tolerated the sedation without complications. Patient is recovering as anticipated. Patient will continue to be monitored by nursing and may be discharged when sedation discharge criteria are met per below protocol. Upon Completions of procedure up to 15 minutes continue every 5 minute vital signs and the P.A.R. score; then discharge to a Phase I or Fast Track to Phase II per the following guidelines: * Discharge Patient to appropriate Phase II area if PAR is 8 or greater or return to pre- procedure baseline. The post - procedure orders will be as directed. * If PAR score is less than 8 or not return to pre-procedure baseline then patient will follow Phase I monitoring till PAR is reached for Phase II. The Phase I may be done in procedure room or may call to secure a Phase I area. * If naloxone or flumazenil are used for reversal, hold in Phase I for continued monitoring from when last reversal dose was given for a minimum of 60 minutes or longer pending the nurse and/or physician discretion of patient condition before discharge to Phase II. Please call the Sedation Physician to re-evaluate and complete post-note for discharge to Phase II area. Do NOT discharge from procedure sedation or Phase 1 until post- sedation evaluation note is complete by procedure /sedation MD Sedation Discharge Instructions to be given to the patient at discharge to home.
--- NOTE | 2024-10-13 09:36 | Cardiac Catheterization ---
[facility] Data: Label Fuser Tender Cardiac Status Clinical evaluation leading to the procedure CAD Presenation: Non STEMI Anginal Classification: CCS IV Diagnostic Physicians Name: Charles Knight MD Closure Device Recommendations: PCI without planned CABG Cardiac Cath Procedure Full Procedure Date October 13, 2024 Pre-Procedure Diagnosis Pre-Procedure Diagnosis: Non STEMI AUC Score AUC Score: 8 Post-Procedure Diagnosis Post-Procedure Diagnosis: Severe CAD and Successful PCI Procedure(s) Performed Procedure(s) Performed: Coronary Angiography, Drug Eluting Stent and IVUS Acquisition Consultant Charles Knight MD Diamond Powder Technician(s) Zackary Vergara Estimated Blood Loss Estimated Blood Loss: 30 Medication(s) Medication(s): Fentanyl, Heparin, Lidocaine 1%, Nicardipine and Versed Medication(s): Ticagrelor Summary of Findings Indication: NSTEMI Access: 6 Fr right radial artery Catheters: EBU 3.0 guide Findings: For full details of patient's coronary angiography please see cath report dictated by Dr. Sutherland. Briefly, patient found to have severe single-vessel disease with acute 98% mid LAD stenosis. Decision to proceed with PCI. -- PCI -- Antithrombotic therapy: Heparin, ticagrelor Procedure: Left main cannulated with EBU 3.0 guide Pre-procedure flow MAURISIO 2 Formulation Chemist 50 wire passed across lesion into distal vessel Gomez IVUS catheter placed to latemid LAD. Pullback revealed mildly calci fied diffuse plaque in mid segment with acute thrombus. Also with 40% ostial LAD disease extending back to distal left main. Remainder of left main without significant disease. Mid LAD lesion predilated with 3.0 compliant balloon Dilated lesion stented with 3.0 x 26 mm [place] extending across takeoff of diagonal Stent post-dilated with 4.0 noncompliant balloon Repeat IVUS showed well apposed, well-expanded stent with no apparent edge complications IC vasodilators administered for spasm Post procedure MAURISIO 3 flow, stent well expanded with minimal residual stenosis and no apparent cardiac complications. MAURISIO-3 flow in diagonal post procedure. Arterial Closure: TR band Summary: 1. Successful PCI of mid LAD with single drug-eluting stent (3.0 x 26 mm [place]; postdilated with 4.0 NC). Recommendations: To PCU for continued monitoring Loaded with ticagrelor 180 mg in Label Fuser Tender Continue dual-antiplatelet therapy for at least 1 year Continue statin, and ASCVD risk factor modification Consult cardiac Rehab Hemodynamics Rest Ao:: 138/88 Final Ao: 136/87 LV: 134/19 Recommendations Recommendations: PCI without planned CABG Specimens Specimens: None Radiation Exposure (mGy) 2392 Contrast (mls) 110 Anesthesia Moderate 2267-1269 Procedural Complication(s) None Disposition PCU I attest to the content of the Intraoperative Record and any orders documented therein. Any exceptions are noted below. [facility] Card Cath Procedure Codes Therapeutic Services & Ancillary Procedure 1: Cardiovascular Tx and Anc Procedures: 44779 IV Ultrasound (Coronary or Graft) Moderate Sedation Procedure 1: Sedation/Anesthesia: 13756 Mod Sedation by the same physician; Ea [id number] Minutes Stenting Procedure 1: Cardiovascular Stent Procedures: 60203 Perc transcatheter placement of intracoronary stent(s), with ang PG Care Time/CCT Total # of Minutes Spent Total Time Spent with Patient: Total time spent is greater than 50% in coordination of care (as documented) at patient's floor/unit and/or counseling patient:
[2024-10-13] MEDS: NITROGLYCERIN SL 0.4 MG/TAB TAB SL STA (16:17)
--- NOTE | 2024-10-13 19:18 | Hospitalist Progress Note ---
Date of Service October 13, 2024 Assessment & Plan (1) NSTEMI (non-ST elevated myocardial infarction): (2) Dyslipidemia: Plan The patient is a 54-year-old male with history of non-Hodgkin's lymphoma in remission who presents with chest discomfort found to have NSTEMI. Taken to the Guest Relations Associate found to have an LAD lesion 1 drug-eluting stent was placed. Patient's troponin did escalate to 1068. #NSTEMI-1 ANIRUDH to the LAD Patient is on aspirin and Brilinta. Metoprolol tartrate to twice daily and atorvastatin 80 Hemoglobin A1c is pending at the time of this dictation lipid panel shows total cholesterol 214 LDL 136 HDL 43 triglycerides 174 Non-Hodgkin's lymphoma- Follows with Dr. Lindo, and has been for the most part in remission for 7 years, mother reports there has been some left axillary activity recently Admission and Anticipated Discharge Date Admission Date: October 13, 2024 Subjective Patient seen post procedure with his he was having some neck pain he typically has neck pain when related to stress. Catheterization site is clean dry and intact card exam is regular Results & Data Results & Data Vital Signs (Past 12 Hours) Vital Signs Temp Pulse Pulse Resp BP BP Pulse Ox 10/13/24 16:43 64 138/90 10/13/24 16:04 63 18 140/93 96 10/13/24 13:45 71 16 137/81 10/13/24 13:00 77 10/13/24 12:45 77 128/87 96 10/13/24 12:15 83 122/82 95 10/13/24 12:00 98.2 F 10/13/24 11:45 63 18 129/86 94 10/13/24 11:17 65 10/13/24 11:15 66 16 135/88 98 10/13/24 11:00 74 18 136/86 96 10/13/24 10:45 72 18 134/110 H 94 10/13/24 10:30 74 18 156/108 H 95 10/13/24 10:15 77 18 143/96 H 95 10/13/24 10:00 67 18 138/100 95 10/13/24 09:45 70 18 137/95 95 10/13/24 09:30 62 18 151/100 H 96 10/13/24 09:15 69 18 139/92 96 10/13/24 09:05 97.8 F 65 18 157/97 H 95 O2 Del Method 10/13/24 16:43 10/13/24 16:04 Room Air 10/13/24 13:45 10/13/24 13:00 10/13/24 12:45 Room Air 10/13/24 12:15 Room Air 10/13/24 12:00 10/13/24 11:45 Room Air 10/13/24 11:17 10/13/24 11:15 Room Air 10/13/24 11:00 Room Air 10/13/24 10:45 Room Air 10/13/24 10:30 Room Air 10/13/24 10:15 Room Air 10/13/24 10:00 Room Air 10/13/24 09:45 Room Air 10/13/24 09:30 Room Air 10/13/24 09:15 Room Air 10/13/24 09:05 Room Air Laboratory Results Reviewed troponin up to 1000 Creatinine has been stable PG Care Time/CCT Total # of Minutes Spent Total Time Spent with Patient: Total time spent is greater than 50% in coordination of care (as documented) at patient's floor/unit and/or counseling patient: Coding Level of Care Code None Diagnoses NSTEMI (non-ST elevated myocardial infarction) I21.4 Dyslipidemia E78.5
[2024-10-13] MEDS: TICAGRELOR 90 MG TAB PO SCH (20:08)
[2024-10-13] MEDS: METOPROLOL TARTRATE 25 MG TAB PO SCH (20:09)
--- NOTE | 2024-10-13 22:01 | XCELERA ---
[id number] \\[id number]
[2024-10-14] MEDS ORDERED: TICAGRELOR 90 MG HOME PACK PO SCH
[2024-10-14 07:11] VITALS: RESP 18
[2024-10-14] MEDS: ATORVASTATIN 40 MG TAB PO SCH (07:59)
[2024-10-14] MEDS: ASPIRIN 81 MG ECTAB PO SCH (08:00)
[2024-10-14 08:12] LABS: Basophils # (auto) 0.03 K/uL (0.00-0.20); Basophils % (auto) 0.4 %; Eosinophils # (auto) 0.14 K/uL (0.00-0.50); Eosinophils % (auto) 1.8 %; Hematocrit (blood only) 44.2 % (42.0-52.0); Hemoglobin 15.6 g/dl (14.0-18.0); Immature Granulocytes # (auto) 0.02 K/uL (0.01-0.20); Immature Granulocytes % (auto) 0.3 %; Lymphocytes # (auto) 1.18 K/uL (1.20-3.40); Mean Corpuscular Hemoglobin 31.1 pg (25.0-34.0); Mean Corpuscular Hgb Conc 35.3 g/dL (32.0-36.0); Mean Corpuscular Volume 88.2 fL (80.0-100.0); Mean Platelet Volume 9.5 fL (9.4-12.4); Monocytes # (auto) 0.68 K/uL (0.11-0.59); Monocytes % (auto) 8.7 %; Neutrophils % (auto) 73.8 %; Platelet Count 248 K/uL (130-400); RDW Coefficient of Variation 12.2 % (11.5-14.5); RDW Standard Deviation 38.7 fL (36.4-46.3); Red Blood Count 5.01 M/uL (4.70-6.10); White Blood Count 7.85 K/ul (4.8-10.8)
--- NOTE | 2024-10-14 08:19 | Cardiology Progress Note ---
Date of Service October 14, 2024 Assessment & Plan (1) NSTEMI (non-ST elevated myocardial infarction): (2) CAD (coronary artery disease): (3) S/P coronary artery stent placement: (4) Dyslipidemia: (5) Cardiomyopathy: Plan ASSESSMENT/PLAN: 1. NSTEMI/CAD s/p LAD PCI: No further angina. Underwent LAD PCI. Has residual nonobstructive CAD. Continue aspirin 81 mg daily indefinitely. Continue Brilinta for at least 1 year. Discussed the importance of dual antiplatelet t herapy. Transition metoprolol to tartrate to metoprolol succinate 25 mg daily. Lisinopril initiated this morning. Continue high intensity statin therapy. Cardiac rehab. When discharged, please include nitroglycerin to use on an as needed basis. 2. Cardiomyopathy: Mildly reduced LV systolic function due to LAD CAD. Can repeat echo in the outpatient setting. Initiating CARLITOS inhibitor. Transition metoprolol to tartrate to metoprolol succinate. Euvolemic. 3. Elevated blood pressure: Start lisinopril 5 mg daily. 4. Dyslipidemia: Continue high intensity statin therapy. Mediterranean diet. 5. Disposition: Encouraged him to ambulate in the hallway. If he does well, can be discharged later today from a cardiology standpoint. He already has an appointment scheduled next week with me in the outpatient setting. Any questions were answered. Patient care communicated with primary hospitalist, Dr. Sutton. Admission and Anticipated Discharge Date Admission Date: October 13, 2024 Subjective He was seen this morning with his intermittently at the bedside. He denies chest pain, shortness of breath, syncope, near syncope, palpitations, edema, or bleeding. He has not yet ambulated in the hallway. Physical Exam Physical Exam: Gen.: No acute distress. Alert and oriented. HEENT: Anicteric sclera. Neck: No JVD. Cardiac: Regular. Normal S1-S2. No murmurs, rubs, or gallops. Pulmonary: Clear to auscultation bilaterally without wheezes, rales, or rhonchi. Abdomen: Soft, nontender, nondistended, with normoactive bowel sounds. No bruits noted. Extremities: Right radial cath site is clean, dry, and intact without erythema or discharge. 2+ radial pulses bilaterally. 2+ posterior tibialis pulses bilaterally. No edema or cyanosis. Psychiatric: Affect appears appropriate. Results & Data Vital Signs (Past 12 Hours) Vital Signs Temp Pulse Pulse Resp BP Pulse Ox O2 Del Method 10/14/24 07:09 36.9 C 73 18 142/87 H 94 Room Air 10/14/24 07:00 78 10/14/24 02:48 36.9 C 70 16 160/98 H 93 Room Air 10/13/24 23:03 66 10/13/24 22:31 37.2 C 78 16 156/92 H 95 Room Air Laboratory Results Laboratory Results - last 24 hr 10/13/24 10/13/24 10/13/24 08:03 08:41 12:33 WBC RBC Hgb Hct MCV MCH MCHC RDW Std Deviation RDW Coeff of Олег Plt Count MPV Immature Gran % (Auto) Neut % (Auto) Lymph % (Auto) Jessamine % (Auto) Eos % (Auto) Baso % (Auto) Neut # (Auto) Lymph # (Auto) Jessamine # (Auto) Eos # (Auto) Baso # (Auto) Immature Gran # (Auto) PT INR APTT PTT Ratio Activ Coag Time Kaolin 158 H 250 H Sodium Potassium Chloride Carbon Dioxide Anion Gap BUN Creatinine Est Cr Clr Drug Dosing eGFR BUN/Creatinine Ratio Glucose Calcium Magnesium Total Bilirubin AST ALT Alkaline Phosphatase Troponin I High Sens 1068.1 H* D Total Protein Albumin Globulin Albumin/Globulin Ratio 10/13/24 10/14/24 10/14/24 19:09 00:32 07:42 WBC 7.85 RBC 5.01 Hgb 15.6 Hct 44.2 MCV 88.2 MCH 31.1 MCHC 35.3 RDW Std Deviation 38.7 RDW Coeff of Олег 12.2 Plt Count 248 MPV 9.5 Immature Gran % (Auto) 0.3 Neut % (Auto) 73.8 Lymph % (Auto) 15.0 Jess[place] % (Auto) 8.7 Eos % (Auto) 1.8 Baso % (Auto) 0.4 Neut # (Auto) 5.80 Lymph # (Auto) 1.18 L Jess[place] # (Auto) 0.68 H Eos # (Auto) 0.14 Baso # (Auto) 0.03 Immature Gran # (Auto) 0.02 PT Pending INR Pending APTT Pending PTT Ratio Pending Activ Coag Time Kaolin Sodium Pending Potassium Pending Chloride Pending Carbon Dioxide Pending Anion Gap Pending BUN Pending Creatinine Pending Est Cr Clr Drug Dosing Pending eGFR Pending BUN/Creatinine Ratio Pending Glucose Pending Calcium Pending Magnesium Pending Total Bilirubin Pending AST Pending ALT Pending Alkaline Phosphatase Pending Troponin I High Sens 1752.4 H* D 2027.8 H* Total Protein Pending Albumin Pending Globulin Pending Albumin/Globulin Ratio Pending Diagnostic Findings Labs reviewed and notable for high-sensitivity troponin up to 2026, normal blood counts. Telemetry personally reviewed: Sinus rhythm. Echo 10/13/2024: Normal LV size. EF 45-50%. Hypokinesis of the apex and mid anteroseptum. Moderate LVH. No significant valvular abnormalities. Cardiac cath 10/13/2024: Coronary angiography: 1. Left main: Distal left main 20-30%. 2. Left anterior descending: Ostial LAD 40%. Mid LAD 98%. MAURISIO II flow distally. Apical LAD 40%. Small caliber D1. Medium caliber D2. 3. Circumflex: Ostial circumflex 40%. Mid circumflex 10%. Very small caliber OM1. Large OM 2 and large OM 3. 4. Right coronary artery: RCA is large and dominant. Mid RCA 20-30%. Distal RCA 20-30%. PL and PDA without significant CAD. Left heart catheterization: 1. Left ventriculography was not performed. 2. No aortic stenosis. 3. LVEDP 19 mmHg. PCI: 1. Successful PCI of mid LAD with single drug-eluting stent (3.0 x 26 mm [place]; postdilated with 4.0 NC). Medications Administered Current Inpatient Medications Acetaminophen (Acetaminophen 325 Mg Tab) 650 mg PO Q4H PRN PRN Reason: Pain or Fever Stop: 11/12/24 06:15 Last Admin: 10/13/24 16:46 Dose: 650 mg Aspirin (Aspirin 81 Mg Ectab) 81 mg PO QAM [facility] Stop: 11/13/24 08:59 Last Admin: 10/14/24 08:00 Dose: 81 mg Atorvastatin Calcium (Atorvastatin 40 Mg Tab) 80 mg PO QAM [facility] Stop: 11/13/24 08:59 Last Admin: 10/14/24 07:59 Dose: 80 mg Metoprolol Tartrate (Metoprolol Tartrate 25 Mg Tab) 12.5 mg PO BID [facility] Stop: 11/12/24 20:59 Last Admin: 10/14/24 07:59 Dose: 12.5 mg Ticagrelor (Ticagrelor 90 Mg Tab) 90 mg PO BID [facility] Stop: 11/12/24 20:59 Last Admin: 10/13/24 20:08 Dose: 90 mg PG Care Time/CCT Total # of Minutes Spent Total Time Spent with Patient: Total time spent is greater than 50% in coordination of care (as documented) at patient's floor/unit and/or counseling patient: Coding Level of Care Code 35324 SUB INP/OBS CARE 3/50MIN Diagnoses NSTEMI (non-ST elevated myocardial infarction) I21.4 CAD (coronary artery disease) I25.10 S/P coronary artery stent placement Z95.5 Dyslipidemia E78.5 Cardiomyopathy I42.9
[2024-10-14 08:27] LABS: Albumin Globulin Ratio 1.6 (0.9-2); Albumin Level 4.3 gm/dl (3.4-5.0); BUN Creatinine Ratio 12.9 (10-20); Bilirubin,Total 0.8 mg/dl (0.2-1.0); Calcium 9.4 mg/dl (8.6-10.3); Creatinine Clr Calc Pharmacy 94.8 ml/min; Globulin 2.7 gm/dl (2.5-4.0); Potassium 4.2 mmol/L (3.5-5.1)
[2024-10-14 08:27] LABS: Estimated Average Glucose 108 mg/dl; Hemoglobin A1C 5.4 % (4.5-5.6)
[2024-10-14 08:38] LABS: INR 0.9 (0.9-1.1); Partial Thromboplastin Time 26 Seconds (21-31); Prothrombin Time 10.3 Seconds (9.0-12.0)
[2024-10-14] MEDS: lisinopril 5 MG TAB PO SCH (09:20)
[2024-10-14 11:21] VITALS: BP 118/84; PULSE 86; TEMP 98.6; O2SAT 95
--- NOTE | 2024-10-14 12:42 | Discharge Summary ---
Date of Service October 14, 2024 Admission HPI Per Admitting Provider The patient is a 54-year-old male with a past medical history including Diaz's neuroma of right foot, dyslipidemia, non-Hodgkin's lymphoma in remission for 7 years.The patient presents to the emergency department with report of substernal chest pain that began around 7:00 this evening after eating supper. He reports that the pain was a new finding for him, and became significantly more intense when he tried to lay back as he was getting ready to go to bed at around 9-10 o'clock this evening. Due to the persistence and worsening of symptoms, patient presented to the emergency department for assessment. In the emergency department, CT angiography chest PE protocol was negative for PE. Initial troponin was 108.3, with follow-up 189.8. Initial EKG showed nonspecific changes across the anterior chest leads. Follow-up EKG showed some more prominent changes. In combination with increasing troponin, and the patient's symptomatology along with changing EKG, patient was placed on heparin drip, he had already been given aspirin 324 mg from the ED, and was on Nitropaste 1 inch anterior chest wall which will be continued. Patient also will have be started on atorvastatin 40 mg now, will follow serial troponins, order complete echocardiogram, check hemoglobin A1c, and cardiology consult has been made. Admission Exam (Per Admitting) Constitutional The patient is awake, alert and oriented 3, well developed and well nourished, normocephalic and atraumatic, lying in bed and in no acute distress. HEENT--PERRL, EOMI, mucous membranes and oropharynx mildly dry Neck--supple. No JVD. No bruits. Thyroid normal, trachea midline, no adenopathy. Heart--normal S1 and S2. No murmurs, rubs or gallops. Lungs--clear bilaterally, no respiratory distress, no accessory muscle use. Abdomen--normal bowel sounds and soft. Extremities--no cyanosis or clubbing. No edema. Dermatologic--normal skin turgor, normal color, no abnormal lymph nodes, no rash. Neurologic--cranial nerves II through XII grossly intact. Rheumatologic--normal range of motion. Psychiatric--normal affect. Discharge Data Consultations 10/13/24 04:06 ED Decision to Admit Stat 10/13/24 04:54 Consult Cardiology Routine Procedures Performed Operation Date: 10/13/24 07:15 Actual Procedures p Cineradiography w/Routine Exam - Gomez Sutherland MD s Drug Eluting Stent SGl Vessel - Charles Knight MD s IVUS Coronary Single Vessel - Charles Knight MD p Cath, Left with Cors and Vent - Gomez Sutherland MD Hospital Course (1) NSTEMI (non-ST elevated myocardial infarction): (2) Dyslipidemia: Plan The patient is a 54-year-old male with history of non-Hodgkin's lymphoma in rem ission who presents with chest discomfort found to have NSTEMI. Taken to the Topline Beading Machine Tender found to have an LAD lesion 1 drug-eluting stent was placed. Patient's troponin did escalate to 1068. #NSTEMI-1 ANIRUDH to the LAD Patient is on aspirin and Brilinta. Metoprolol tartrate to twice daily and atorvastatin 80 Outpatient follow up with cardiology HTN Started on Lisinopril 5mg daily Non-Hodgkin's lymphoma- Follows with Dr. Lindo, and has been for the most part in remission for 7 years, mother reports there has been some left axillary activity recently Coding Level of Care Code 63845 INP/OBS DISCH >30 MIN Diagnoses NSTEMI (non-ST elevated myocardial infarction) I21.4 Dyslipidemia E78.5 Time Spent (min) 35
[2024-10-14] MEDS: METOPROLOL SUCC 25MG EXT REL TAB PO SCH (13:08)
[2024-10-14] MEDS ORDERED: TICAGRELOR 90 MG TAB PO SCH ×2 (20:45→21:00)
--- NOTE | 2024-10-14 21:04 | Electrocardiogram Report ---
Test Reason : Blood Pressure : */* mmHG Vent. Rate : 62 BPM Atrial Rate : 62 BPM P-R Int : 148 ms QRS Dur : 84 ms QT Int : 410 ms P-R-T Axes : 26 -32 13 degrees QTcB Int : 416 ms Normal sinus rhythm Left axis deviation T wave abnormality, consider anterior ischemia Abnormal ECG When compared with ECG of 13-Oct-2024 01:35, T wave inversion more evident in Anterior leads Confirmed by Gomez Sutherland ([id number]) on 10/14/2024 9:04:29 PM Referred By: REFERRED SELF Confirmed By: Gomez Sutherland
--- NOTE | 2024-10-14 21:04 | Electrocardiogram Report ---
Test Reason : Blood Pressure : */* mmHG Vent. Rate : 72 BPM Atrial Rate : 72 BPM P-R Int : 146 ms QRS Dur : 90 ms QT Int : 406 ms P-R-T Axes : 26 -36 10 degrees QTcB Int : 444 ms Normal sinus rhythm Left axis deviation Cannot rule out Anterior infarct , age undetermined T wave abnormality, consider anterior ischemia Abnormal ECG No previous ECGs available Confirmed by Gomez Sutherland ([id number]) on 10/14/2024 9:04:06 PM Referred By: REFERRED SELF Confirmed By: Gomez Sutherland
--- NOTE | 2024-10-14 21:05 | Electrocardiogram Report ---
Test Reason : Blood Pressure : */* mmHG Vent. Rate : 62 BPM Atrial Rate : 62 BPM P-R Int : 148 ms QRS Dur : 86 ms QT Int : 412 ms P-R-T Axes : 18 -14 8 degrees QTcB Int : 418 ms Normal sinus rhythm Nonspecific T wave abnormality Abnormal ECG When compared with ECG of 13-Oct-2024 04:48, T wave inversion less evident in Anterior leads Confirmed by Gomez Sutherland ([id number]) on 10/14/2024 9:04:51 PM Referred By: REFERRED SELF Confirmed By: Gomez Sutherland
--- NOTE | 2024-10-15 11:52 | Coding Query ---
PRESENT ON ADMISSION QUERY To promote full compliance with coding requirements relating to pateint care, physician participation is requested in all cases of sub prior uncertainty. Please assist us with the question(s) below: Please place an X within the parenthesis (x). The following diagnosis(es) listed in this patient's medical record require physician assistance to determine if they were present on admission (POA) or not. Please advise for each diagnosis whether it was present on admission, not present on admission, or if it was clinically undetermined. 1. CARDIOMYOPATHY - documentation is on the 10/14 Cardiology Progress Note) (x) Present On Admission ( ) Not Present On Admission ( ) Clinically Undetermined Thank you Brenda Lugo *Definition of the present on admission (POA)-Present on admission is defined as present at the time the order for inpatient admission occurs. Conditions that develop during an outpatient encounter prior to a written order for inpatient admission (including emergency department, observation, or outpatient surgery) are considered present on admission. MTDD
== END 2024-10-14 14:02 | disposition home or self-care (01) | DRG 322 ==
LOC: SUATTDRO → ED 00:03 → EDINP 04:54 → SUATTDRO 04:54 → EDINP 07:43 → 2S 11:36